=== PATIENT | female | born 1995 | race Caucasian/White ===

== ENCOUNTER 2018-08-21 16:15 | Outpatient (RCR) | payer OTHER, SELFPAY ==
--- NOTE | 2017-12-21 18:36 | MASS.EVAL_ITS ---
Massage Therapy Evaluation: Initial Evaluation Date: 12/21/2017 SUBJECTIVE: Ashley is a 22 year old female who was referred to the [facility] facility for a massotherapy evaluation by Dr. Jesse Piña with the diagnosis of migraines and TMJ dysfunction. Ashley presents today with the symptoms of neck and upper back pain with muscle tension in her low back and hips. She also complains of tension in her head with migraine symptoms. She reports having a medical history of neck pain and occasional migraines. She reports having minimal limitations during her daily activities currently. OBJECTIVE: Upon observation Ashley has poor posture with her head forward and shoulders forward from the neutral position in sitting and standing. After examination and palpation I found Ashley to have very high muscle tension with tenderness and myofascial restrictions in her sub occipitals, trapezius, rhomboids, scalenes, thoracic paraspinals and pectoral muscles. Her hips and lumbar region were also tight. The first treatment consisted of a one hour massage to her full body with myofascial release, muscle stripping, trigger point compression techniques, and cervical manual traction. ASSESSMENT: I feel that Ashley is a good candidate for massotherapy at this time. She had a favorable response to the first treatment with reduction in her muscle aches, pain and tension. She also had improvement in her cervical flexibility. PLAN: The plan of care was reviewed with the patient. The patient is to be seen on as needed basis for a total of ten sessions with the recommendation of once every four weeks for a one hour treatment.
--- NOTE | 2018-09-08 14:48 | MASS.DISCH ---
Massage Therapy Discharge Summary: Discharge Date: 09/08/2018 Ashley was seen for a massotherapy evaluation on 12/21/2017 with the diagnosis of migraines and TMJ. She was treated with two sessions of massage therapy consisting of deep pressure soft tissue techniques, myofascial release and trigger point compression to her cervical, thoracic, lower back, upper extremities and hips. Ashley responded well to the therapy by reporting decreased tension and pain throughout her neck, shoulders, lower back and hips. Her goals for therapy were met throughout the treatment sessions. At this time this patient is being discharged from our care at [facility] facility.
== END 2018-08-21 19:00 | disposition home or self-care (01) ==
LOC: MASS 16:15
PROVIDERS: Family Provider Family Medicine; PCP Family Medicine; Visit Provider Family Medicine
DX: G43.909 Migraine, unspecified, not intractable, without status migrainosus (principal); M26.69 Other specified disorders of temporomandibular joint
CPT/HCPCS: 97124

== ENCOUNTER → 2018-10-31 11:39 | Outpatient (CLI) | payer OTHER, SELFPAY | LOC: LAB 11:41 → LABSPEC 11:45 | PROVIDERS: Family Provider Family Medicine; PCP Family Medicine; Referring Provider Otolaryngology Otolaryngology/Facial Plastic Surgery; Visit Provider Otolaryngology Otolaryngology/Facial Plastic Surgery | DX: J03.90 Acute tonsillitis, unspecified (principal) | CPT/HCPCS: 87070 ==

== ENCOUNTER 2018-12-13 09:10 | Day surgery (SDC) | payer OTHER, SELFPAY ==
[2018-12-13] VITALS (7 sets, daily range): BP systolic 116–124; BP diastolic 73–83; PULSE 58–85; RESP 16–24; TEMP 36.6–37.3; O2SAT 95–100; BMI 28.7
[2018-12-13 09:32] LABS: Internal QC Validated? YES +Cl - CLEAR BKGD; Pregnancy, Urine Negative Negative
[2018-12-13] MEDS: Oxymetazoline 0.05% 1 SPRAY SPRAY.BTL NASAL (10:40)
[2018-12-13] MEDS: Bacitracin 500 UNITS/GM PACKET (10:43)
--- NOTE | 2018-12-13 10:50 | TONS_PTH ---
PATIENT: ALENA OSHEA [place] [facility] [id number] AGE/SX: 23/F ROOM: RE12/13/[address]: Randy Nelson MD : 1995 BED: DIS: 12/13/2018 SPEC #: [id number] RECD: 12/13/18 13:52 STATUS: GERRI SHERRIE #: [id number] OMEGA: 12/13/18 10:[address]: Randy Nleson DEPT: SURGICAL PATHOLOGY RECD BY: Vj Michel ENTERED: 12/13/18 14:21 SP TYPE: TONSILS OTHR DR: Dr. Jesse Piña MD Tissues: Tonsil, NOS Procedures: Surgery Specimen Level III HEADER OPERATION: Tonsillectomy PRE-OP DIAGNOSIS: Chronic tonsillitis TISSUE SUBMITTED: Bilateral tonsils (right with tie) MICROSCOPIC DIAGNOSIS Bilateral tonsils: Reactive lymphoid hyperplasia, consistent with chronic tonsillitis. SJ:flakita 12/14/18 MICROSCOPIC DESCRIPTION Slides are reviewed. GROSS DESCRIPTION Received is one container labeled with the patient's name and designated tonsils - tie on right are two tonsils that in aggregate weigh 7 gm. The right tonsil has a tie on it and measures 3.2 x 1.7 x 1.3 cm. The left tonsil measures 2.6 x 1.5 x 1 cm. Both tonsils are similar in appearance. The external surfaces are pink-macias, smooth, glistening and somewhat lobulated. Focally they are hemorrhagic, granular and bear cautery artifact. Serial cross sections through the tonsils reveal normal tonsillar architecture. Sections are submitted in two cassettes as follows: 1 - right tonsil, 2 - left tonsil. / AM:flakita 12/13/18 TC:3 [facility]: [id number] x2
--- NOTE | 2018-12-13 10:55 | DCINST_ITS ---
Discharge Diet: Soft diet - for 2 weeks, be sure to drink extra liquids. Discharge Activity: Return to Normal Activity - Rest for 10 days Additional Activity Instructions:: Use tylenol (with or without the hydrocodone) every 4 hours for the first 7-10 days then as needed. Allergies/Adverse Reactions: Allergies sulfamethoxazole [From Bactrim] Adverse Reaction (Verified 12/06/18 10:14) Rash trimethoprim [From Bactrim] Adverse Reaction (Verified 12/06/18 10:14) Rash Medications to take at Discharge Escitalopram Oxalate [Lexapro] 10 mg PO DAILY 10/23/16 Loratadine [Claritin] 10 mg PO DAILY 12/06/18 Primary Care Physician: Jonathan Piña MD [Primary Care Provider] - Test Results: Test results from this visit will be discussed in further detail at your follow- up appointment, if applicable. Please Follow Up With: Randy Nelson MD - [phone] When: in 1-2 weeks.
--- NOTE | 2018-12-13 11:26 | PCM.OPRPT ---
Report of Operation Date of Procedure: 12/13/18 Pre-Operative Diagnosis: Chronic tonsillitis Post-Operative Diagnosis: Same Surgery/Procedure Performed:: Tonsillectomy Type of Anesthesia:: Bro Diez/Supplemental Anesthesiologist: Rock Simpson CRNA Estimated Blood Loss (mL): 15 ml Description of Procedure: The patient was transported to the operating room and placed on the OR table in the supine position. After the administration of adequate general endotracheal anesthesia the patient was appropriately positioned, eyes were treated and taped closed. Head drape was applied. The Eren-Eda mouthgag was introduced into the oral cavity extended and suspended from a Hernandez stand. Inspection and palpation were negative for any signs of submucosal clefting of the palate. Adenoidal tissue had regressed and was virtually absent. Tonsillar tissues were markedly hyperplastic but not acutely inflamed. The right tonsil was grasped with a tenaculum. With #12 sickle blade a mucosal incision was created along the right anterior tonsillar pillar. With Marie dissector, Metzenbaum scissors, in both blunt and sharp fashion the tonsil was excised. The bayonet Bovie was utilized for hemostasis throughout the dissection as well as for electrodissection. The left tonsil was then removed in similar fashion. The oral cavity was irrigated with saline suctioned dry and hemostasis was obtained with electrocautery. When it was evident that no further bleeding was present, the Eren-Eda mouthgag was relaxed, withdrawn, and the procedure terminated. The patient tolerated the procedure well, did not sustain any anesthetic or surgical complication, was extubated in the operating room and taken to the PACU where she was noted to be in satisfactory condition. Randy Nelson MD
[2018-12-13] MEDS: HYDROCODONE/APAP 7.5-325/15ML 15 ML UDC 10 ML PO (12:18)
== END 2018-12-13 13:23 | disposition home or self-care (01) ==
LOC: SDC 09:11 → AC 09:11
PROVIDERS: Anesthesiology; Family Provider Family Medicine; PCP Family Medicine; Referring Provider Otolaryngology Otolaryngology/Facial Plastic Surgery; Visit Provider Otolaryngology Otolaryngology/Facial Plastic Surgery
PROC: (CPT 42826; principal; 2018-12-13 10:35)
DX: J35.01 Chronic tonsillitis (principal); F32.9 Major depressive disorder, single episode, unspecified; Z79.899 Other long term (current) drug therapy
CPT/HCPCS: 00170; 42826; 81025; 88304; J7120; J2405

== ENCOUNTER 2019-09-03 14:30 | Outpatient (RCR) | payer OTHER, SELFPAY ==
[2018-12-13 09:18] VITALS: BMI 28.7
--- NOTE | 2019-02-25 10:55 | MASS.EVAL ---
Massage Therapy Evaluation: Initial Evaluation Date: 02/13/2019 SUBJECTIVE: Ashley is a 23 year old female who was referred to the [facility] facility for a massotherapy evaluation by Dr. Piña with the diagnosis of Migraines and muscle tension. Ashley presents today with the symptoms of tension and pain in her neck, mid back and low back. Ashley reports having a past medical history migraines, neck and back pain. OBJECTIVE: Upon observation Ashley has some posture issues with her head and shoulders forward from the neutral position in sitting and standing. After examination and palpation I found Ashley to have high muscle tension with tenderness and myofascial restrictions in her sub occipitals, levator scapulae, trapezius, rhomboids, scalenes, and thoracic paraspinals. Her QL?s, lumbar paraspinals, piriformis, glute medius and minimus all were very tight with fascial restrictions, tender points and trigger points. The first treatment consisted of a one hour massage to her full body with myofascial release, muscle stripping, trigger point compression techniques, and cervical manual traction. ASSESSMENT: I feel that Ashley is a good candidate for massotherapy at this time. She had a favorable response to the first treatment with reduction in her muscle aches, pain and tension. She also had improvement in her cervical flexibility and low back flexibility. PLAN: The plan of care was reviewed with the patient. The patient is to be seen on an as needed basis for a total of ten sessions with the recommendation of once every month for a one hour treatment. Diane Seay LMT
--- NOTE | 2019-09-05 13:06 | MASS.DISCH ---
Massage Therapy Discharge Summary: Discharge Date: 09/05/2019 Ashley was seen for a massotherapy evaluation on 02/13/2019 with the diagnosis of migraines. She was treated with five sessions of massage therapy consisting of moderate to deep pressure soft tissue techniques, myofascial release and trigger point compression to her cervical, thoracic, lower back, upper extremities, hips and lower extremities. Ashley responded well to the therapy by reporting decreased tension and pain throughout her head, neck, shoulders, lower back and hips. Her goals for therapy were met throughout the treatment sessions. At this time this patient is being discharged from our care at [facility] facility.
== END 2019-09-03 19:00 | disposition home or self-care (01) ==
LOC: MASS 14:30
PROVIDERS: Family Provider Family Medicine; PCP Family Medicine; Referring Provider Family Medicine; Visit Provider Family Medicine
DX: G43.909 Migraine, unspecified, not intractable, without status migrainosus (principal)
CPT/HCPCS: 97124

== ENCOUNTER → 2020-05-07 | Outpatient (CLI) | payer OTHER, SELFPAY ==
[2018-12-13 09:18] VITALS: BMI 28.7
[2020-05-12 03:06] LABS: Chlamydia By Nucleic Acid AMP Negative (Negative)
[2020-05-12 10:45] LABS: Gonococcus By Nucleic Acid AMP Negative (Negative)
[2020-05-12 13:34] LABS: HPV Reflexed? NOT INDICATED
== END | disposition home or self-care (01) ==
LOC: LABSPEC 17:00
PROVIDERS: PCP Family Medicine; Referring Provider Obstetrics & Gynecology; Visit Provider Obstetrics & Gynecology
DX: Z12.4 Encounter for screening for malignant neoplasm of cervix (principal); Z11.3 Encounter for screening for infections with a predominantly sexual mode of transmission
CPT/HCPCS: 87491; 87591; 88175; G0145

== ENCOUNTER → 2020-06-17 07:55 | Outpatient (CLI) | payer OTHER, SELFPAY ==
[2018-12-13 09:18] VITALS: BMI 28.7
--- NOTE | 2020-06-17 08:00 | CT_ITS ---
STUDY: CT MAXILLOFACIAL SINUSES REASON FOR EXAM: Female, 24 years old. SINUSITIS X YEARS RADIATION DOSAGE (If Supplied By Facility): CTDIvol = ( 33.06 ) mGy, DLP = ( 676.83 ) mGycm TECHNIQUE: The patient was scanned in a multi detector CT scanner. High resolution axial imaging was performed without the administration of intravenous contrast material. Sagittal and coronal images were reconstructed. Individualized dose optimization techniques were used for this CT. COMPARISON: None. FINDINGS: FRONTAL SINUSES: Normal aeration, without mucosal inflammatory disease. ETHMOIDAL SINUSES: Normal aeration, without mucosal inflammatory disease. MAXILLARY SINUSES: Partial nodular opacification of the maxillary sinus bilaterally worse on the left side. SPHENOIDAL SINUSES: Normal aeration, without mucosal inflammatory disease. There is patency of the bilateral maxillary infundibuli with normal uncinate processes, ethmoid bullae, and hiatus semilunaris. Normal bilateral middle turbinates. Normal bilateral inferior turbinates. There is a right sided nasal septal deviation, but without a nasal septal spur. There is patency of the bilateral nasal airways. The visualized osseous structures are normal. The visualized bilateral orbital contents are normal. CT/Sinus/Facial Bone IMPRESSION: Partial opacification of the maxillary sinus bilaterally worse on the left side Electronically Signed: Robert Zheng, at 8:53 EDT , Service support ,
== END ==
PROVIDERS: PCP Family Medicine; Referring Provider Otolaryngology; Visit Provider Otolaryngology
DX: J32.9 Chronic sinusitis, unspecified (principal)
CPT/HCPCS: 70486

== ENCOUNTER → 2020-07-21 10:08 | Outpatient (CLI) | payer OTHER, SELFPAY ==
[2020-06-29 08:39] VITALS: BMI 28.7
== END ==
LOC: LABSPEC 10:08 → PSN 10:09
PROVIDERS: PCP Family Medicine; Referring Provider Otolaryngology; Visit Provider Otolaryngology
DX: Z11.59 Encounter for screening for other viral diseases (principal)
CPT/HCPCS: 87635; C9803; U0003

== ENCOUNTER 2020-09-07 13:30 | Outpatient (RCR) | payer OTHER, SELFPAY ==
[2018-12-13 09:18] VITALS: BMI 28.7
--- NOTE | 2019-11-13 10:32 | MASS.EVAL ---
Massage Therapy Evaluation: Initial Evaluation Date: 11/08/2019 SUBJECTIVE: Ashley is a 24 year old female who was referred to the [facility] for a massotherapy evaluation by Dr Piña with the diagnosis of migraines. She presents today with the symptoms of pain, stiffness and tension in the neck, mid back, and low back. Ashley reports having a few headaches a week. Some are worse then others. OBJECTIVE: Upon observation Ashley has some posture issues with her head and shoulders forward from the neutral position in sitting and standing. After examination and palpation, I found Ashley to have high muscle tension with tenderness and myofascial restrictions in her sub occipitals, levator scapulae, trapezius, rhomboids, scalenes, and thoracic paraspinals. Her left side is worse compared to the right side. Her QL?s and lumbar paraspinals all were very tight with fascial restrictions, tender points and trigger points. The first treatment consisted of a one hour massage to her upper body with myofascial release, muscle stripping, trigger point compression techniques, and cervical manual traction. ASSESSMENT: I feel that Ashley is a good candidate for massotherapy at this time. She had a favorable response to the first treatment with reduction in her muscle aches, pain and tension. She also had improvement in her cervical flexibility and low back flexibility. PLAN: The plan of care was reviewed with the patient. The patient is to be seen on an as needed basis for a total of ten sessions with the recommendation of once every month for a one hour treatment.
--- NOTE | 2020-09-07 15:05 | MASS.DISCH ---
Massage Therapy Discharge Summary: Initial Evaluation Date: 11/08/2019 Diagnosis: Migraines No. of Visits: 7 Date of last visit: 09/07/2020 This patient is being discharged from our care at the [facility]. Thank you, Jenn Shetty LMT
== END 2020-09-07 19:00 | disposition home or self-care (01) ==
LOC: MASS 13:30
PROVIDERS: PCP Family Medicine; Referring Provider Family Medicine; Visit Provider Family Medicine
DX: G43.909 Migraine, unspecified, not intractable, without status migrainosus (principal)
CPT/HCPCS: 97124

== ENCOUNTER → 2021-01-13 11:23 | Outpatient (CLI) | payer OTHER, SELFPAY ==
[2020-06-29 08:39] VITALS: BMI 28.7
--- NOTE | 2021-01-13 11:35 | RAD_ITS ---
STUDY: X-RAY - RIGHT ANKLE REASON FOR EXAM: Right ankle/fifth metatarsal pain since July. TECHNIQUE: 3 view(s) of the ankle. COMPARISON: None. FINDINGS: Normal visualized distal tibia and fibula. Normal medial and lateral malleoli. Normal tibiotalar articulation and ankle mortise. Normal visualized talus and calcaneus. Normal visualized fifth metatarsal base. The visualized subtalar, talonavicular, calcaneocuboid and tarsal articulations are normal. The soft tissue structures are unremarkable. RAD/Ankle min 3 Views IMPRESSION: Normal x-ray examination of the right ankle. Electronically Signed: Ameya Zheng MD at 12:23 EDT Tel , Service support ,
--- NOTE | 2021-01-13 13:35 | RAD_ITS ---
STUDY: X-RAY - RIGHT FOOT CLINICAL: Lateral right foot pain, rolled right ankle/foot. TECHNIQUE: 3 view(s) of the foot. COMPARISON: None. FINDINGS: Normal talus, calcaneus, and tarsal bones. Normal visualized subtalar, talonavicular, calcaneocuboid, tarsal and tarsometatarsal articulations. Normal metatarsi. Normal metatarsophalangeal joint of the great toe. Normal tibial and fibular sesamoid bones. Normal interphalangeal joint of the great toe. Normal phalanges of the great toe. Normal second through fifth metatarsophalangeal joints. Normal interphalangeal joints and phalanges of the lesser toes. The soft tissue structures are unremarkable. RAD/Foot min 3 Views IMPRESSION: Normal x-ray examination of the right foot. Electronically Signed: Ameya Zheng MD at 14:35 EDT Tel , Service support ,
== END ==
PROVIDERS: PCP Family Medicine; Referring Provider Family Medicine; Visit Provider Family Medicine
DX: M79.671 Pain in right foot (principal)
CPT/HCPCS: 73610; 73630

== ENCOUNTER → 2021-02-12 13:24 | Outpatient (CLI) | payer OTHER, SELFPAY ==
[2020-06-29 08:39] VITALS: BMI 28.7
--- NOTE | 2021-02-12 13:31 | MRI_ITS ---
STUDY: MRI RIGHT REARFOOT WITHOUT CONTRAST REASON FOR EXAM: Female, 25 years old. RIGHT FOOT PAIN TECHNIQUE: Standardized fat and water weighted pulse sequences were obtained in all 3 orthogonal planes. COMPARISON: X-ray January 13, 2021 FINDINGS: Normal subcutis adipose space. Normal posterior tibialis tendon. Normal flexor digitorum longus tendon. Normal flexor hallucis longus tendon. Normal peroneus longus and brevis tendons. Normal tibialis anterior tendon. Normal extensor hallucis longus tendon. Normal extensor digitorum longus tendons. Normal Achilles tendon and teno-osseous insertion. Normal plantar fascia. Normal plantar calcaneal tubercles. Normal intrinsic muscles of the rearfoot. There is interstitial edema of the anterior tibiofibular ligament of the distal tibiofibular articulation consistent with a partial high ankle sprain, series 4 image /. There is mild syndesmotic fluid. Normal lateral ligamentous complex. Normal subtalar ligaments and sinus tarsi. Normal deltoid ligamentous complexes. Normal plantar calcaneonavicular (spring) ligament. Normal tibiotalar articulation. Normal talar dome. Normal subtalar articulations. Normal talonavicular articulation. Normal calcaneocuboid articulation. Normal navicular-cuneiform articulations. MRI/Lower Ext/No Jt/w/o IMPRESSION: High ankle sprain with syndesmotic fluid. No fracture. No osteochondral injury of the talar dome. Electronically Signed: Adams Rutherford MD at 15:42 EDT , Service support ,
== END ==
PROVIDERS: PCP Family Medicine; Referring Provider Family Medicine; Visit Provider Family Medicine
DX: M79.671 Pain in right foot (principal)
CPT/HCPCS: 73718

== ENCOUNTER → 2021-04-05 01:02 | Outpatient (CLI) | payer OTHER, SELFPAY ==
[2020-06-29 08:39] VITALS: BMI 28.7
[2021-04-05 02:22] LABS: Free T3 3.3 pg/mL (2.18-3.98); T4 Free Direct 0.92 ng/dL (0.76-1.46); Thyroid Stim Hormone (TSH) 3.56 uIU/mL (0.358-3.74)
== END ==
PROVIDERS: PCP Family Medicine; Visit Provider Obstetrics & Gynecology
DX: R53.83 Other fatigue (principal); Z03.818 Encounter for observation for suspected exposure to other biological agents ruled out; Z83.49 Family history of other endocrine, nutritional and metabolic diseases
CPT/HCPCS: 84439; 84443; 84481; 86769

== ENCOUNTER 2021-06-25 06:11 | Day surgery (SDC) | payer OTHER, SELFPAY ==
[2021-06-11 13:07] LABS: Absolute Lymphocyte Count 2.01 X10^3/uL (0.83-4.51); Absolute Neutrophil Count 3.2 X10^3/uL (2.0-7.7); Basophil# 0.06 X10^3/uL; Eosinophil# 0.16 X10^3/uL; Eosinophils% 2.7 % (0-5); Hematocrit 44.9 % (37-47); Hemoglobin 15.4 g/dL (12.0-15.0); Lymphocyte # 2.01 X10^3/ul (0.83-4.51); Lymphocyte % 33.4 % (19-41); Mean Corp Hgb Conc 34.3 g/dL (32-36); Mean Corpuscular Volume 93.2 fL (81-99); Mean Platelet Vol. 11.5 fl (6.2-12.0); Monocyte# 0.57 X10^3/uL; Monocyte% 9.5 % (0-10); NRBC Flagged by Analyzer 0 % (0-5); Neutrophil # 3.21 X10^3/uL (2.7-7.7); Neutrophil % 53.2 % (47-70); Platelet Count 233 K/mm3 (150-450); RBC Distribution Width CV 11.5 % (11.6-14.6); RBC Distribution Width SD 38.2 fl (35.1-43.9); Red Blood Count 4.82 M/mm3 (4.2-5.4)
[2021-06-11 13:40] LABS: ALB/GLOB Ratio 1.1 RATIO (0.9-2.4); AST(SGOT) 43 U/L (15-37); Alanine Aminotransfer ALT/SGPT 87 U/L (13-56); Albumin, Serum 3.8 g/dL (3.2-5.0); Alkaline Phosphatase 86 U/L (45-117); Anion Gap 3 (5-15); BUN 7 mg/dL (7-18); BUN/Creat Ratio 8.7 RATIO (10-20); Chloride 105 mmol/L (98-107); EST Glomerular Filtration Rate 91 mL/min (>60); Est Glom Filt Rate - Afr Amer 110 mL/min (>60); Globulin 3.5 g/dL (2.2-4.2); Glucose 116 mg/dL (74-106); Potassium 3.7 mmol/L (3.5-5.1); Protein, Total 7.3 g/dL (6.4-8.2); Sodium Level 138 mmol/L (136-145)
[2021-06-25 06:43] LABS: Internal QC Validated? YES +Cl - CLEAR BKGD; Pregnancy, Urine Negative Negative
[2021-06-25 06:47] VITALS: BP 121/73; PULSE 78; RESP 16; TEMP 36.5; O2SAT 100; BMI 32.3
[2021-06-25] MEDS: Lactated Ringers 1,000 ML 80 ML IV (06:59)
[2021-06-25] MEDS: Cefazolin 2 GM in 0.9% Normal Saline 100 ML IV (07:25)
--- NOTE | 2021-06-25 07:30 | RAD_ITS ---
STUDY: X-RAY - RIGHT ANKLE REASON FOR EXAM: Female, 25 years old. Repair of ankle syndesmosis. Injury. Arthroplasty. TECHNIQUE: 3 series of fluoroscopic images were provided. The first contains 14 images. The second contains 35 images. The third contains 56 images. Fluoroscopy time was not provided. COMPARISON: Right ankle, 01/13/2021. FINDINGS: Initial set of images are obtained right ankle. There is evidence of a fixation device extending from the lateral aspect of distal fibula through the medial aspect of the tibia. The ankle mortise appears to be in grossly normal position. The second series of images again demonstrate the fixation device in various images. The third demonstrates the ankle and lateral view was movement of the ankle. Please refer to the operative report for further details RAD/Ankle min 3 Views IMPRESSION: Fixation of the distal tibia and fibula in the OR. Electronically Signed: Steve Pederson DO at 16:31 EDT Tel [phone], Service support ,
[2021-06-25] MEDS: Lidocaine 1% /Epi 1:100 (20ml) 20 ML Vial (08:12)
[2021-06-25] MEDS: Bupivacaine Mpf 0.5% 30 ML VIAL (09:00)
[2021-06-25] MEDS: Lidocaine 1% (30 ml sdv) 30 ML Vial (09:00)
--- NOTE | 2021-06-25 09:25 | OP.PCM_ITS ---
Problems Associated Problem List Diagnoses (1) High ankle sprain of right lower extremity: (2) Pain in right ankle and joints of right foot: (3) Other synovitis and tenosynovitis, right ankle and foot: Report of Operation Date of Procedure: 06/25/21 Pre-Operative Diagnosis: 1. Right ankle syndesmosis injury / instability 2. Right ankle pain 3. Right ankle synovitis 4. Possible right ankle instability (lateral) Post-Operative Diagnosis: 1. Right syndesmosis injury / instability 2. Right ankle pain 3. Right ankle synovitis Surgery/Procedure Performed:: 1. Right diagnostic and reparative ankle arthroscopy (synovectomy) 2. Repair of right ankle syndesmosis 3. Flouroscopy guided stress test of right ankle Description of Surgical Findings:: Hemostasis: Well-padded pneumatic right thigh tourniquet, 305 mmHg, 47 minutes total Materials: one Arthrex FiberWire tight rope, 3-0 Vicryl, 4-0 nylon Complications: None Specimens: None Findings: -arthroscopic: synovitis to the anterior lateral ankle gutter. No osteochondral defect or loose bodies. The distal syndesmosis was evaluated with some laxity with over 2 mm of probing diastases. The deltoid ligament and ATFL appeared intact without any attenuation. -flouroscopic: There was instability to ankle sydnesmosis pre repair. Repeat flouroscopy guided stress test without instability noted post repair of the distal ankle syndesmosis. The patient tolerated the procedure and anesthesia well. The patient was transported to the PACU with vital signs stable and vascular status intact to the surgical limb. To ice and elevate for pain and inflammation management. Postoperative x-rays were reviewed prior to leaving the operating room. There were no acute injuries noted. The ankle mortise was maintained in a rectus position. Post repair stress films were reviewed including dorsiflexion external rotation, anterior drawer test, and stress inversion with no additional instability noted. Postoperative orders were entered electronically. Surgeon: Genoveva Bernstein curing room supervisor: None (Mariam Lara, PGY3, DPM) Type of Anesthesia: General and Local (Intraoperative right lower extremity: 14 cc of 1% lidocaine with epinephrine administered intra articular (ankle), 15 cc of 1% lidocaine plain mixed with 0.5% Marcaine plain administered in high ankle block fashion) Specimen's removed: none Estimated Blood Loss (mL): < 75 mL Description of Procedure: Indications: This 25-year-old female with significant past medical history of depression sustained a right ankle sprain injury almost one year ago when she jumped out of a truck while on vacation. The mechanism of injury was inversion with forced dorsiflexion. She has had ongoing instability and pain to the anterior lateral lower ankle extending into the dorsal foot. X-rays did not demonstrate any gapping at the tibia-fibula relationship or any shortening of the fibula. MRI reviewed did not demonstrate any bone marrow edema or osteochondral lesion of the distal end of the tibia or talus. There was some edema and attenuation to the distal syndesmosis and not in particular to the AITFL, ATFL, deltoid ligaments, or PITFL. The peroneal tendons looked intact. She had a diagnostic ankle injection with temporary resolution of pain in the clinical setting. Her pain on palpation is to the distal syndesmosis and there was no gross laxity clinically with the anterior drawer test. Her neurovascular status is intact. She has a rectus lower extremity and does not appear to have any functional or structural cavus characteristics. She was previously evaluated seated and standing. Preoperative H&P (Dr. Piña) were reviewed including his diagnostic data. There was no gross abnormalities noted with labs for preoperative EKG. Preoperative indications, planned procedure, benefits, risk, anticipated healing time and management were reviewed. The patient understands and elects proceed with surgery at this time. No guarantees were made. The patient understands risk and complications include but are not limited to following: pain, swelling, scarring, need for further surgery, tendon contracture, transfer lesion, hardware failure, arthritis, need for further surgery, delayed or nonhealing, infection, blood clot, continued instability, allergic reaction, loss of limb, function, or life. The informed surgical limb and consent were signed. I ans wered all the patient's questions. The patient also understands there is an inherent risk with being in the hospital and undergoing a procedure during the time of COVID-19 pandemic. The patient understands precautions are being taken to prevent transmission. This patient understands the benefits and risks of having a procedure at this time versus waiting in which the benefits are reasonable at this time. Procedure in detail: This patient was brought to the operating room via cart and placed on the operating table in supine position. Final verification of the patient, surgery, limb designation was performed via the timeout procedure. General anesthesia was initiated by the anesthesia team. IV antibiotics were administered. Preoperative fluoroscopy guided stress test were performed prior to preparation of the sterile field. Her right lower extremity was compared to the non injured left lower extremity. She did demonstrate syndesmosis instability on the mortise evaluation on the right, and not with the anterior drawer test or stress inversion tests. This was captured with saved radiographs. A well-padded pneumatic right thigh tourniquet was placed. Next, she was positioned for ankle arthroscopy with her knee flexed. Care was taken to pad and position her well to prevent neuropraxia and also to allow good surgical site exposure. The right lower extremity was prepped and draped in the usual sterile fashion. Next, preoperative local anesthetic was administered intra-articular (lidocaine with epi) and also to the portal incision site locations (lidocaine and marcaine plain mixture). A small incision was made medial to the tibialis anterior careful dissection was performed through the capsule. The cannula and obturator were entered intra-articular. Next, the arthroscope was placed and the joint was directly visualized. Ingress and egress flow was adjusted with lactated ringer fluid. The lateral entry point was next made with a small less than 1 cm linear incision via transillumination lateral to the extensor digitorum longus tendon. Care was taken to identify, protect, retract and avoid all neurovascular structures at this point and throughout the entire surgery. It was noted synovitis was located a moderate amount to the anterior and anterior lateral joint aspects. A 3.5 mm shaver was used to debride any inflammatory proliferative tissue. There was some mild invagination of the hypertrophic synovium to this anterior lateral ankle region. There were no fibrous bands, loose bodies, or osteochondral injuries seen. Next, an anterior and central joint survey was performed according to standard protocol in which the ATFL and deltoid ligament and posterior deltoid ligament were visualized without any abnormalities. There were no soft spots noted with direct probing. There was no fibrous bands or synovitis noted to the medial gutter or anteromedial joint. There was no chondromalacia or joint fissures seen either to the talus or tibia articular surfaces. There was laxity noted at the syndesmosis area in which a 2 mm probe was advanced into this region which correlated with her clinical findings. The distal aspect of the tibia articular surface was also evaluated without any abnormalities. The full joint survey included the following: anterior gutter, ATFL, lateral gutter, lateral interval, central groove, medial band, medial gutter, deltoid ligament, central portion of the talus and plafond, articulation of the lateral talar dome with the tibia and fibula, medial dome of the talus and corresponding plafond, deltoid ligament, talofibular articulation, and posterior lateral gutter. Arthroscopic images were saved. All arthroscopic instrumentation were removed at this time. The tourniquet was deflated; 24 min utes. The patient was next placed in a standard supine position and anticipated instrumentation was prepared. An Esmarch bandage was used to exsanguinate the right lower extremity and the tourniquet was reinflated at this time. A 2 cm linear incision was made lateral to the distal fibula and blunt dissection was performed down to the fibula taking care to identify, protect, retract all neurovascular structures throughout the remainder of surgery. Arthrex syndesmosis tight rope was applied according standard fashion approximately 1 1/2 cm proximal to the joint under fluoroscopy guidance. This was tightened with hand tightness and was secured. Fluoroscopic images were obtained to confirm proper placement through both the fibula and tibia. Next, the fluoroscopy guided stress test were repeated and no remaining laxity was noted. The additional proposed procedures to consider additional lateral ankle stabilization repair was not deemed necessary at this time. Saline irrigation was performed. The tourniquet was deflated at this time with a total used time of 47 minutes. Brisk capillary refill time was noted to all digits of the foot and there was no pulsatile bleeding. Direct pressure was applied to maintain hemostasis. Vicryl suture was used to perform deep closure and the skin was reapproximated with nylon suture utilizing horizontal mattress technique. A dressing was applied including jumpstart antimicrobial dressing, gauze, abdominal pad, and Kerlix. Additionally, a well-padded posterior mold splint was placed in a neutral position. After procedure: The patient tolerated the procedure and anesthesia well. The patient was transported to the PACU with vital signs stable and vascular status intact to the surgical limb. To ice and elevate for pain and inflammation management. Postoperative x-rays were reviewed prior to leaving the operating room as noted. To maintain a nonweightbearing status to the surgical limb. She will follow-up with the [facility] next week. She was given a prescription for postoperative pain medication and was advised on safe and proper use. Postoperative orders were entered electronically. She will be discharged home today. Genoveva Bernstein DPM, [facility] Grafts/Implants Used: arthrex sydnesmosis repair implant Complications none Admit VTE Documentation VTE Present on Admission: No VTE Mechan Device Prophylaxis: SCD's VTE Pharm Prophylaxis ordered?: No Reason prophylaxis not ordered:: Procedure Not Indicated
--- NOTE | 2021-06-25 09:28 | EX.PCM.DISCH ---
Discharge Instructions Diet Discharge Diet: No restrictions Activity Discharge Activity: May Not Drive, May Shower (only with the use of a shower bag), Use Walker, Use Crutches and - (use knee roller) Ice area for (Minutes): 15 (place behind knee and not on the dressing or splint. do not ice for more than 15 minutes each hour) Weight Bearing Status: No weight bearing Keep extremity elevated above heart level: Right Leg Dressing / Incision Call your doctor if your incision/area has: Continuous Slow Oozing, Sudden Increased Bleeding, Increased Pain/ Swelling, Increased Redness, Foul Smelling Discharge and Swelling at the incision site Call your doctor if you observe: Fever of 101 or Higher, Swelling in the ankles, Chest pain, Calf discomfort and Uncontrolled pain Change Dressing in: do not change dressing Remove Dressing in: do not remove dressing Cleanse incision/area with: Keep Dressing Clean & Dry Follow Up Care Please Follow Up With: Genoveva Bernstein DPM When: 1 week [facility] the [facility]. Call [phone] sooner if questions or concerns. Test Results: Test results from this visit will be discussed in further detail at your follow-up appointment, if applicable. Discharge Plan Admission Primary Reason for Your Visit: s/p ankle surgery Attending Provider: Genoveva Bernstein Primary Care Provider: Jonathan Piña Discharge Orders/Prescriptions Prescriptions: New hydrocodone-acetaminophen 5-325 mg tablet 1 tab PO Q6H PRN (Reason: pain) 7 Days Qty: 28 RF: 0 No Action escitalopram oxalate 20 MG tablet 10 mg PO QODAY RF: 0 loratadine [Claritin Liqui-Gel] 10 MG capsule 10 mg PO DAILY RF: 0 multivitamin with minerals [Hair,Skin and Nails] Tablet 1 tab PO DAILY RF: 0 escitalopram oxalate [Lexapro] 5 mg Tablet 5 mg PO QODAY RF: 0 cholecalciferol (vitamin D3) [Vitamin D3] 25 mcg (1,000 unit) Tablet 25 mcg PO QODAY RF: 0 Referrals / Follow Up: Jonathan Piña MD [Primary Care Provider] - Disposition Disposition (needs filled in before D/C Order can be placed): Home, Self Care
[2021-06-25 09:33] VITALS: BP 101/58; BP 121/73; PULSE 64; RESP 16; TEMP 35.9; O2SAT 99
[2021-06-25 09:45] VITALS: BP 107/67; BP 121/73; PULSE 71; RESP 16; O2SAT 99
[2021-06-25] MEDS: Ketorolac 30 MG/ML Syringe IV (09:56)
[2021-06-25 10:00] VITALS: BP 115/70; BP 121/73; PULSE 64; RESP 18; TEMP 36.4; O2SAT 100
[2021-06-25] MEDS: HYDROcodone Bitartrate/Apap 5/325 Tablet PO (10:38)
[2021-06-25 11:32] VITALS: BP 102/61; BP 121/73; PULSE 72; RESP 16; TEMP 36.3; O2SAT 99
--- NOTE | 2021-06-25 12:57 | SUR.PHASEII ---
Dr. Beltran called and asked to updated patient on surgery specifics. Dr her.
== END 2021-06-25 11:38 | disposition home or self-care (01) ==
LOC: SDC 06:11 → AC 06:11
PROVIDERS: Anesthesiology; PCP Family Medicine; Referring Provider Podiatrist; Visit Provider Podiatrist
PROC: (CPT 27829; principal; 2021-06-25 07:15)
DX: S93.431A Sprain of tibiofibular ligament of right ankle, initial encounter (principal); M65.871 Other synovitis and tenosynovitis, right ankle and foot; M25.371 Other instability, right ankle; X58.XXXA Exposure to other specified factors, initial encounter; Y93.9 Activity, unspecified; Y92.9 Unspecified place or not applicable; F41.9 Anxiety disorder, unspecified; F32.9 Major depressive disorder, single episode, unspecified; Z79.899 Other long term (current) drug therapy
CPT/HCPCS: 01464; 27829; 29895; 73610; 76000; 80053; 81025; 85025; 87426; C1713; C9803; J7120; J2405

== ENCOUNTER 2021-09-13 13:30 | Outpatient (RCR) | payer OTHER, SELFPAY ==
--- NOTE | 2021-08-18 11:06 | HP.PTEVAL ---
Patient's Visit Information ALENA COYLE is a 25 year old F referred to Physical Therapy by Dr. Genoveva Bernstein, DPM with a diagnosis of RIGHT ANKLE SYNDESMOSIS REPAIR,ANKLE ARTHROSCOPY WITH SYNEVECTOMY. Date of Evaluation: 08/18/21 Physical Therapist: Randy Martin, PT, Cert MDT, OCS - Visit Plan Frequency: 2-3x /Week Duration: 8 WEEKS Plan: CAM BOOT WITH WBAT UNTIL 08/23 ,WITH PATIENT NOT COMPLIANT. PT INTERVENTIONS WITH GAIT TRAINING WITH PROGRESSION OF WB,ROM ANKLE,STRENGTHENING EX'S ANKLE STABILZERS ,CLOSED CHAIN WB ACTIVTIES ,PROPRIOCEPTION AND FUNCTIONAL STRENGTHENING - Subjective This 25 female presents to physical therapy right syndesmosis repair and ankle arthroscopy with synovectomy on 06/25/[address] Bernstein at [facility] . Patient d/c to home NWB RLE using knee scooter. Patient was NWB for 4weeks with soft cast .then on 07/05 removed soft cast and removed sutures and CAM boot with PWB RLE 40% ,then from 08/09 2 weeks FWB. Although patient hasn't been following WB restriction Dr looks good had x-rays looked good. Patient initially injury ankle last 08/07/20 twisted ankle and pain persisted ,then had MRI. Denies paresthesia/tingling. Denies pain . Patient has difficulty with stairs and extended walking. Patient has not RTW. Patient RTD 09/08/21. Tentative RTW date Sep 22. Patient surgery affects QOL ,function ,gait and RTW. SOCAIL: single. VOACTION: Plembotist - Objective POSTURE: frontal plane mechanics pes planus. GAIT: ambulates with CAM boot with WBAT per patient. NEURO: intact ,denies paresthesia. EDEMA: joint line trimalleolar 51 cm. AROM: ankle dorsiflexion 0 degrees, plantarflexion 50 degrees, inversion 20 degrees, eversion 5 degrees. MMT: anterior tibials 4-/5, peroneus 4-/5, posterior tibials 4-/5, G-S 3/5 - Balance/Special Test Scores Lower Extremity Functional Score: 44 - Goals Goal 1:: Patient to be I with progression of EX'S Goal Time Frame: 6-8 Weeks Goal 2:: Patient to normalize gait pattern . Goal Time Frame: 6-8 Weeks Goal 3:: Patient improve AROM ankle symmetrical to right to improve function Goal Time Frame: 6-8 Weeks Goal 4:: Patient to increase strength of ankle 4/5 to improve gait Goal Time Frame: 6-8 Weeks Goal 5:: Patient improve proprioception right ankle to improve gait stance time on level/unlevel surfaces Goal Time Frame: 6-8 Weeks Goal 6:: Patient to improve LFES score by 10 points to improve QOL and gait to RTW. - Rehabilitation Potential Physical Therapy Diagnosis: This patient underwent s/p surgery of syndesmosis 06/25/21 with decrease ROM ,strength ankle proprioception impairs gait with progression of WB ,thus benefit from skilled PT Rehabilitation Potential: Good - Anticipated Interventions Patient/Client Instruction: Educate patient on: Condition, Plan of Care For the Purpose of:: To decrease pain, To increase ROM, To improve muscle performance and motor function, To improve ability to perform ADL's, To increase tolerance to activity/condition/position, To improve performance and independence with ADL's, To improve ability of physical actions for home/community/work/leisure, To improve health of tissue, To decrease soft tissue restriction, To increase flexibility/ROM, To reduce risk of recurrence, To prevent re-injury, To improve ability to perform tasks related to life management Therapeutic Exercise to Include: Strength training, Endurance training, Balance training, Coordination, Agility training, Flexibilty training, Gait and locomotor training, Active ROM Comment: ANKLE For the Purpose of:: To decrease swelling/inflammation, To increase ROM, To improve muscle performance and motor function, To improve ability to perform ADL's, To increase tolerance to activity/condition/position, To improve performance and independence with ADL's, To improve ability of physical actions for home/community/work/leisure, To improve gait and locomotor functions, To improve health of tissue, To improve endurance, To improve balance, To improve ability to perform tasks related to life management Thank you for the opportunity to evaluate your patient. For Medicare and Medicare HMO plans, please review the plan of care and approve it. It will need to be FAXED BACK to us at [phone] for Medicare purposes. For Medicare only, by signing this I certify the plan of care. Please let me know if there are questions or concerns regarding this plan of care. Physician Signature: Date:
--- NOTE | 2021-09-13 14:05 | HP.PTDCSUM ---
It has been my pleasure to treat ALENA COYLE referred by Dr. Genoveva Bernstein, TAM[place], with the diagnosis of RIGHT ANKLE SYNDESMOSIS REPAIR,ANKLE ARTHROSCOPY WITH SYNEVECTOMY for a total of 8 visit(s). Discharge Date: 09/13/21 Please see the following information for a summary of their discharge status. Subjective: Doing well..no pain ready for d/c % Improvement: 100 Objective/Function: GAIT: NORMAL ABISAI. MMT: 5/5 ANKLE. AROM ANKLE: WNL. PROPRIOCEPTION: INTACT Goal 1:: Patient to be I with progression of EX'S Goal Progress: Goal Met Goal 2:: Patient to normalize gait pattern . Goal Progress: Goal Met Goal 3:: Patient improve AROM ankle symmetrical to right to improve function Goal Progress: Goal Met Goal 4:: Patient to increase strength of ankle 4/5 to improve gait Goal Progress: Goal Met Goal 5:: Patient improve proprioception right ankle to improve gait stance time on level/unlevel surfaces Goal Progress: Goal Met Goal 6:: Patient to improve LFES score by 10 points to improve QOL and gait to RTW. Plan: D/C Discharge Comments: HEP If there are questions or concerns regarding this patient's physical therapy, please feel free to call me at [phone]. Thank you for the referral of this patient. Sincerely, Randy Martin, PT, Cert MDT, OCS Balance/Gait/Functional tests - Balance/Special Test Scores Lower Extremity Functional Score: 71
== END 2021-09-13 19:00 | disposition home or self-care (01) ==
LOC: PT 13:30
PROVIDERS: PCP Family Medicine; Referring Provider Podiatrist; Visit Provider Podiatrist
DX: Z47.89 Encounter for other orthopedic aftercare (principal)
CPT/HCPCS: 97110; 97161

== ENCOUNTER 2021-09-13 14:45 | Outpatient (RCR) | payer OTHER, SELFPAY ==
--- NOTE | 2021-03-10 11:46 | MASS.EVAL_ITS ---
Massage Therapy Evaluation: Initial Evaluation Date: 03/01/2021 SUBJECTIVE: Ashley is a 25 year old female who was referred to the [facility] for a massotherapy evaluation by Dr. Piña with the diagnosis of migraines. She presents today with the symptoms of pain, stiffness and tension in the neck, head, mid back and low back. Ashley reports having a past medical history of chronic neck and back pain and headaches. She reports of taking muscles relaxers to help with the pain. OBJECTIVE: Upon observation Ashley has poor posture with her head and shoulders forward from the neutral position in sitting and standing. After examination and palpation, I found Ashley to have high muscle tension with tenderness and myofascial restrictions in her sub occipitals, levator scapulae, trapezius, rhomboids, scalenes, and thoracic paraspinals. Her QL?s, lumbar paraspinals, piriformis, ITB?s, glute medius and minimus all were very tight with fascial restrictions, tender points and trigger points. The first treatment consisted of a one hour massage to her upper body with myofascial release, muscle stripping, trigger point compression techniques, and cervical manual traction. ASSESSMENT: I feel that Ashley is a good candidate for massotherapy at this time. She had a favorable response to the first treatment with reduction in her muscle aches, pain, and tension. She also had improvement in her cervical flexibility and low back flexibility. PLAN: The plan of care was reviewed with the patient. The patient is to be seen on an as needed basis for a total of ten sessions with the recommendation of once every month for a one hour treatment.
--- NOTE | 2021-09-13 17:25 | MASS.DISCH ---
Massage Therapy Discharge Summary: Initial Evaluation Date: 03/01/21 Diagnosis: Migraine/Back pain No. of Visits: 9 Date of last visit: 09/13/21 This patient is being discharged from our care at the [facility]. Thank you, Jenn Shetty LMT
== END 2021-09-13 19:00 | disposition home or self-care (01) ==
LOC: MASS 14:45
PROVIDERS: PCP Family Medicine; Visit Provider Family Medicine
DX: M54.9 Dorsalgia, unspecified (principal); G43.909 Migraine, unspecified, not intractable, without status migrainosus
CPT/HCPCS: 97124

== ENCOUNTER 2021-11-22 10:11 | Outpatient (CLI) | payer OTHER, SELFPAY ==
[2021-11-22 12:05] LABS: Internal QC Validated? YES +Cl - CLEAR BKGD; Pregnancy, Serum, hCG Quali. NEGATIVE Negative
== END 2021-11-22 23:59 | disposition home or self-care (01) ==
LOC: LAB 10:12
PROVIDERS: PCP Family Medicine; Visit Provider Student in an Organized Health Care Education/Training Program
DX: N91.2 Amenorrhea, unspecified (principal)
CPT/HCPCS: 36415; 84703

== ENCOUNTER → 2022-01-12 | Outpatient (CLI) | payer OTHER, SELFPAY ==
[2022-01-19 20:45] LABS: HPV Reflexed? NOT INDICATED
== END | disposition home or self-care (01) ==
LOC: LABSPEC 16:11
PROVIDERS: PCP Family Medicine; Visit Provider Obstetrics & Gynecology
DX: Z12.4 Encounter for screening for malignant neoplasm of cervix (principal)
CPT/HCPCS: 88175; G0145

== ENCOUNTER → 2022-07-05 | Outpatient (CLI) | payer OTHER, SELFPAY ==
--- NOTE | 2022-07-05 11:19 | RAD_ITS ---
STUDY: X-RAY - LUMBAR SPINE REASON FOR EXAM: Female, 26 years old. Back pain TECHNIQUE: 3 view(s) of the lumbar spine were obtained. COMPARISON: None FINDINGS: Normal lumbar lordosis. There is no substantial scoliosis. There is a normal alignment of the vertebrae. Normal vertebral bodies and endplates. Normal disc space heights. There is no demonstrated fracture. The soft tissue structures are unremarkable. RAD/Lumbar Spine 2 or 3 Views IMPRESSION: Normal x-ray examination of the lumbar spine. Electronically Signed: Tej Serrano MD at 1:39 EDT ,
--- NOTE | 2022-07-05 11:24 | RAD_ITS ---
STUDY: X-RAY - CERVICAL SPINE REASON FOR EXAM: Female, 26 years old. neck pain TECHNIQUE: AP and lateral view(s) of the cervical spine were obtained. COMPARISON: None FINDINGS: Normal anterior atlantoaxial articulation. Normal odontoid process. Normal cervical lordosis. Normal vertebral bodies and endplates. Normal disc space heights. Normal visualized intervertebral neuroforamina. The soft tissue structures are unremarkable. RAD/Cerv Spine 2 or 3 Views IMPRESSION: Normal x-ray examination of the visualized cervical spine. Electronically Signed: Ant Polo MD at 22:56 EDT ,
== END | disposition home or self-care (01) ==
LOC: RAD 11:16
PROVIDERS: PCP Family Medicine; Referring Provider Chiropractor; Visit Provider Chiropractor
DX: M54.2 Cervicalgia (principal); M99.01 Segmental and somatic dysfunction of cervical region; M99.02 Segmental and somatic dysfunction of thoracic region
CPT/HCPCS: 72040; 72100

== ENCOUNTER 2022-08-15 06:34 | Outpatient (CLI) | payer OTHER, SELFPAY ==
--- NOTE | 2022-08-15 06:35 | CT_ITS ---
STUDY: CT BRAIN WITHOUT CONTRAST REASON FOR EXAM: Female, 26 years old. Ongoing worsening headache RADIATION DOSAGE (If Supplied By Facility): CTDIvol = ( 44.99 ) mGy, DLP = ( 762.36 ) mGycm TECHNIQUE: Transaxial CT imaging of the brain was performed without administration of intravenous contrast material. Individualized dose optimization techniques were used for this CT. COMPARISON: No relevant priors. FINDINGS: Normal soft tissue structures. Normal calvarium. Normal size ventricles and extra-axial spaces for the patient''s age. Normal white matter tracts of the cerebral hemispheres. Normal basal ganglia and thalami. Normal brainstem. Normal cerebellum. There is no intracranial hemorrhage. Question about 2.8 mm aneurysm at the origin of the right middle cerebral artery. There are no findings of an acute ischemic infarction. There is a 1.1 cm mucosal retention cyst or polyp along the posterior aspect of the left maxillary sinus. CT/Brain/Head without Contrast IMPRESSION: Questionable 2.8 mm aneurysm at the origin of the right middle cerebral artery. Correlation with MRI of the brain is recommended. 1.1 cm mucosal retention cyst or polyp along the posterior aspect of the left maxillary sinus. Electronically Signed: Robert Zheng MD at 10:30 EST ,
== END 2022-08-15 23:59 | disposition home or self-care (01) ==
LOC: CT 06:35
PROVIDERS: PCP Family Medicine; Visit Provider Nurse Practitioner Family
DX: G43.909 Migraine, unspecified, not intractable, without status migrainosus (principal)
CPT/HCPCS: 70450

== ENCOUNTER 2022-08-17 05:04 | Outpatient (CLI) | payer OTHER, SELFPAY ==
[2022-08-17 06:04] LABS: Anion Gap 6 (5-15); BUN 12 mg/dL (7-18); BUN/Creat Ratio 15.4 RATIO (10-20); Calcium,Total 8.7 mg/dL (8.5-10.1); Chloride 103 mmol/L (98-107); Creatinine, Serum 0.78 mg/dL (0.55-1.02); EST Glomerular Filtration Rate 93 mL/min (>60); Est Glom Filt Rate - Afr Amer 113 mL/min (>60); Free T3 3.4 pg/mL (2.18-3.98); Glucose 92 mg/dL (74-106); Potassium 3.6 mmol/L (3.5-5.1); Sodium Level 137 mmol/L (136-145); T4 Total, Thyroxin 9.8 ug/dL (4.8-13.9); Thyroid Stim Hormone (TSH) 1.69 uIU/mL (0.358-3.74)
== END 2022-08-17 23:59 | disposition home or self-care (01) ==
PROVIDERS: PCP Family Medicine; Visit Provider Nurse Practitioner Family
DX: R53.83 Other fatigue (principal); I67.1 Cerebral aneurysm, nonruptured
CPT/HCPCS: 36415; 80048; 81241; 82533; 84436; 84443; 84481

== ENCOUNTER 2022-08-24 10:06 | Outpatient (CLI) | payer OTHER, SELFPAY ==
--- NOTE | 2022-08-24 10:10 | MRI_ITS ---
EXAM: MR HEAD WITHOUT AND WITH INTRAVENOUS CONTRAST CLINICAL INDICATION: CT scan with questionable 2.8mm R MCA aneurysm; further eval. TECHNIQUE: Multiplanar and multisequence MR images of the brain were obtained without and with intravenous contrast. This report was created using [employer] report [employer] technology. CONTRAST: IV 18ml Clariscan COMPARISON: CT brain 08/15/2022 FINDINGS: BRAIN AND EXTRA-AXIAL SPACES: Normal. No intra- or extra-axial hemorrhage. No evidence of acute infarct. No intracranial mass or mass effect. There is preservation of the easley/white matter interface. Posterior fossa structures are unremarkable. Ventricles are appropriate for age. No hydrocephalus. Basal cisterns are patent. No abnormal contrast enhancement. No evidence of intracranial aneurysm SELLA: Normal. Normal sella turcica, pituitary gland, infundibular stalk, optic chiasm and hypothalamus. AUDITORY SYSTEM: Normal. The internal auditory canals are patent. BONES/JOINTS: Intact calvarium. SINUSES: Mucosal thickening noted within both maxillary sinuses. MASTOID AIR CELLS: Unremarkable as visualized. Clear. ORBITS: Unremarkable as visualized. Both globes, extraocular muscles, optic nerves and retrobulbar fat appear unremarkable. VASCULATURE: Unremarkable as visualized. Normal flow voids in the major intracranial circulation. MRI/Brain W/WO Contrast IMPRESSION: No intracranial abnormality. No evidence of aneurysm. Electronically Signed: Ryan Baker MD at 11:35 EST ,
== END 2022-08-24 23:59 | disposition home or self-care (01) ==
LOC: MRI 10:07
PROVIDERS: PCP Family Medicine; Visit Provider Nurse Practitioner Family
DX: I67.1 Cerebral aneurysm, nonruptured (principal)
CPT/HCPCS: 70553; A9575

== ENCOUNTER → 2022-09-08 | Outpatient (CLI) | payer OTHER, SELFPAY ==
--- NOTE | 2022-09-08 13:31 | US_ITS ---
STUDY: ULTRASOUND OF THE FEMALE PELVIS - COMPLETE REASON FOR EXAM: Female, 27 years old. OVARIAN DYSFUNCTION LMP: 09/04/2022 TECHNIQUE: Transvaginal TECHNICAL QUALITY: Adequate. COMPARISON: None. FINDINGS: The uterus is anteverted and is tilted to the left side of the pelvis. The uterus measures 7.8 cm x 4.1 cm x 3.6 cm. There is a Nabothian cyst of the cervix. The endometrium measures 8 mm in thickness, and is heterogeneous (striated). There is no demonstrated endometrial mass. There is no demonstrated myometrial mass. I.U.D. - The patient does not have an I.U.D. The right ovary is visualized. The right ovary measures 3.2 cm x 1.9 cm x 2 cm. There is no right ovarian cyst or ovarian mass. There is no visualized right adnexal mass or complex lesion. There is normal arterial and normal venous vascularity. The left ovary is visualized. The left ovary measures 2.5 cm x 2.5 cm x 3.1 cm. Dominant follicle is seen measuring 1.2 cm. There is no visualized left adnexal mass or complex lesion. There is normal arterial and normal venous vascularity. There is no fluid in the cul-de-sac. US/Transvaginal Non- IMPRESSION: Normal female pelvis. Dominant follicle in the left ovary. Electronically Signed: Robert Zheng MD at 14:42 EST ,
== END | disposition home or self-care (01) ==
LOC: US 13:25
PROVIDERS: PCP Family Medicine; Referring Provider Obstetrics & Gynecology; Visit Provider Obstetrics & Gynecology
DX: E28.9 Ovarian dysfunction, unspecified (principal)
CPT/HCPCS: 76830

== ENCOUNTER → 2022-10-01 | Outpatient (CLI) | payer OTHER, SELFPAY ==
[2022-10-01 09:25] LABS: Glucose 75GTT - Fasting 88 mg/dL (70-99)
[2022-10-01 10:13] LABS: Insulin 75GTT - Fasting 8.6 mU/L (2.6-37.6)
[2022-10-01 10:14] LABS: T3 Total - Triiodothyronine 1.26 ng/mL (0.6-1.81); Vitamin D,25 Hydroxy 63.2 ng/mL
[2022-10-01 10:15] LABS: Estradiol 43.3 pg/mL; Follicle Stimulating Hormone 6.3 mIU/mL; Luteinizing Hormone 7.2 mIU/mL; Prolactin 10.1 ng/mL; Thyroid Stim Hormone (TSH) 1.57 uIU/mL (0.358-3.74)
[2022-10-01 10:30] LABS: Insulin 75GTT - 60 min 44.4 mU/L (Not Estab)
[2022-10-01 10:34] LABS: Prolactin 7.5 ng/mL; Thyroid Stim Hormone (TSH) 1.38 uIU/mL (0.358-3.74)
[2022-10-01 10:34] LABS: Prolactin 7.6 ng/mL
[2022-10-01 10:36] LABS: Glucose 75GTT - 30 minutes 109 mg/dL (100-160)
[2022-10-01 10:42] LABS: Glucose 75GTT - 60 minutes 92 mg/dL (100-160)
[2022-10-01 11:24] LABS: Glucose 75GTT - 120 minutes 95 mg/dL (70-140)
[2022-10-03 08:48] LABS: Internal QC Validated? YES +Cl - CLEAR BKGD; Pregnancy, Serum, hCG Quali. NEGATIVE Negative
[2022-10-06 11:09] LABS: Testosterone, % Free 0.98 % (0.50-2.80); Testosterone, Free 0.33 ng/dL (0.10-0.85); Testosterone, Total 34 ng/dL (13-71); Thyroid Peroxidase AB < 9 IU/mL (0-34)
[2022-10-07 12:47] LABS: Sex Hormone-binding Globulin 40.1 nmol/L (24.6-122.0); Thyroglobulin Antibody < 1.0 IU/mL (0.0-0.9)
== END | disposition home or self-care (01) ==
PROVIDERS: PCP Family Medicine; Visit Provider Obstetrics & Gynecology
DX: E28.9 Ovarian dysfunction, unspecified (principal); E55.9 Vitamin D deficiency, unspecified
CPT/HCPCS: 36415; 82306; 82533; 82627; 82670; 82951; 82952; 83001; 83002; 83498; 83525; 84146; 84270; 84402; 84403; 84439; 84443; 84480; 84481; 84703; 86376; 86800; 82626

== ENCOUNTER → 2022-10-03 | Outpatient (CLI) | payer OTHER, SELFPAY ==
--- NOTE | 2022-10-03 08:25 | RAD_ITS ---
STUDY: HYSTEROSALPINGOGRAM. REASON FOR EXAM: Female, 27 years old. INFERTILITY FLUOROSCOPY TIME (if supplied): ( 18 seconds ) minutes/seconds. 2 images were obtained. TECHNIQUE: A hysterosalpingogram was performed by the chief design drafter. Imaging was provided. COMPARISON: None. FINDINGS: The uterus is unremarkable. Both fallopian tubes are widely patent with free spill. RAD/Salpingogram IMPRESSION: Normal hysterosalpingogram. Electronically Signed: Robert Zheng MD at 10:33 EST ,
== END | disposition home or self-care (01) ==
LOC: RAD 08:20
PROVIDERS: PCP Family Medicine; Visit Provider Obstetrics & Gynecology
DX: N97.9 Female infertility, unspecified (principal)
CPT/HCPCS: 58340; 74740; Q9967

== ENCOUNTER → 2023-05-23 | Outpatient (CLI) | payer OTHER, SELFPAY ==
[2023-05-23 05:19] LABS: hCG Titer Quant., Serum 707 mIU/mL (1-3)
== END | disposition home or self-care (01) ==
PROVIDERS: PCP Family Medicine; Visit Provider Obstetrics & Gynecology
DX: N91.2 Amenorrhea, unspecified (principal)
CPT/HCPCS: 36415; 84702

== ENCOUNTER → 2023-05-25 | Outpatient (CLI) | payer OTHER, SELFPAY ==
[2023-05-25 05:42] LABS: hCG Titer Quant., Serum 1852 mIU/mL (1-3)
== END | disposition home or self-care (01) ==
PROVIDERS: PCP Family Medicine; Visit Provider Obstetrics & Gynecology
DX: N91.2 Amenorrhea, unspecified (principal)
CPT/HCPCS: 36415; 84702

== ENCOUNTER → 2023-06-13 | Outpatient (CLI) | payer OTHER, SELFPAY ==
[2023-06-15 22:06] LABS: Chlamydia By Nucleic Acid AMP Negative (Negative); Gonococcus By Nucleic Acid AMP Negative (Negative)
[2023-06-20 22:06] LABS: HPV Reflexed? NOT INDICATED
== END | disposition home or self-care (01) ==
LOC: LABSPEC 15:25
PROVIDERS: PCP Family Medicine; Referring Provider Advanced Practice Midwife; Visit Provider Advanced Practice Midwife
DX: Z34.00 Encounter for supervision of normal first pregnancy, unspecified trimester (principal)
CPT/HCPCS: 87086; 87491; 87591; 88175; G0145

== ENCOUNTER → 2023-07-31 | Outpatient (CLI) | payer OTHER, SELFPAY ==
[2023-07-31 05:36] LABS: Absolute Lymphocyte Count 2.48 X10^3/uL (0.83-4.51); Absolute Neutrophil Count 4.9 X10^3/uL (2.0-7.7); Basophil# 0.06 X10^3/uL; Basophil% 0.7 % (0-1); Eosinophil# 0.32 X10^3/uL; Eosinophils% 3.7 % (0-5); Hematocrit 43.4 % (37-47); Hemoglobin 14.6 g/dL (12.0-15.0); Lymphocyte # 2.48 X10^3/ul (0.83-4.51); Lymphocyte % 28.8 % (19-41); Mean Corp Hgb Conc 33.6 g/dL (32-36); Mean Corpuscular Hgb 31.1 pg (27.0-32.0); Mean Corpuscular Volume 92.3 fL (81-99); Mean Platelet Vol. 11.5 fl (6.2-12.0); Monocyte# 0.78 X10^3/uL; NRBC Flagged by Analyzer 0 % (0-5); Neutrophil # 4.93 X10^3/uL (2.7-7.7); Neutrophil % 57.2 % (47-70); Platelet Count 224 K/mm3 (150-450); RBC Distribution Width CV 11.5 % (11.6-14.6); RBC Distribution Width SD 38.9 fl (35.1-43.9); White Blood Count 8.6 K/mm3 (4.4-11.0)
[2023-07-31 10:44] LABS: HIV - WCH Non-Reactive (Nonreactive); Hepatitis B Surface Antigen Non-Reactive (Nonreactive); Hepatitis C Antibody Non-Reactive (Nonreactive); Rubella IgG Reactive (Nonreactive); Syphilis Antibodies Non-reactive
== END | disposition home or self-care (01) ==
PROVIDERS: PCP Family Medicine; Visit Provider Advanced Practice Midwife
DX: Z34.00 Encounter for supervision of normal first pregnancy, unspecified trimester (principal)
CPT/HCPCS: 36415; 85025; 86703; 86762; 86780; 86803; 86850; 86900; 86901; 87340

== ENCOUNTER → 2023-09-22 | Outpatient (CLI) | payer OTHER, SELFPAY ==
--- NOTE | 2023-09-22 12:34 | US_ITS ---
STUDY: SECOND AND THIRD TRIMESTER OBSTETRICAL ULTRASOUND REASON FOR EXAM: Female, 28 years old anatomy LMP: Unknown. TECHNIQUE: Transabdominal and Transvaginal TECHNICAL QUALITY: Adequate. PRIOR ULTRASOUND: None. FINDINGS: There is a single intrauterine fetus. The fetus is in a cephalic presentation. There is demonstrated cardiac activity with a heart rate of 141 bpm. There is a normal amniotic fluid volume. The largest amniotic fluid pocket measures 6.99 cm. The placenta is posterior in location and is not low lying. There are Grade 0 placental changes. The cervix measures 3.9 cm in length. The adnexal regions are not visualized. BIOMETRY: BPD: 5.26 cm: 22 weeks, 0 days HC: 19.47 cm: 21 weeks, 5 days AC: 17.25 cm: 22 weeks, 1 days FL: 3.55 cm: 21 weeks, 2 days CI: 77.9 age by current US: 21 weeks, 5 days. ABIODUN by current US: January 28, 2024. Estimated weight: 455 grams, +/- 68 grams, 42 %. ANATOMY: (Small defects cannot be excluded on ultrasound) Gender: Male Cranium: Visualized lateral ventricles, choroid plexus, cerebellum, cisterna magna, and face nose and lips. Chest: Normal 4-chamber heart. Abdomen/Pelvis: Visualized diaphragm, stomach, abdominal wall, cord insertion, 3 core vessel, kidneys, and bladder. Spine: Visualized cervical, thoracic, lumbar spine, as well as sacrum. Extremities: Visualized upper and lower extremities. No visualized obvious or significant defect. IMPRESSION: 1. age by current US: 21 weeks, 5 days. ABIODUN by current US: January 28, 2024. Estimated weight: 455 grams, +/- 68 grams, 42 %. Electronically Signed: Primitivo Woodson MD at 16:02 [facility] , STUDY: SECOND AND THIRD TRIMESTER OBSTETRICAL ULTRASOUND REASON FOR EXAM: Female, 28 years old anatomy LMP: Unknown. TECHNIQUE: Transabdominal and Transvaginal TECHNICAL QUALITY: Adequate. PRIOR ULTRASOUND: None. FINDINGS: There is a single intrauterine fetus. The fetus is in a cephalic presentation. There is demonstrated cardiac activity with a heart rate of 141 bpm. There is a normal amniotic fluid volume. The largest amniotic fluid pocket measures 6.99 cm. The placenta is posterior in location and is not low lying. There are Grade 0 placental changes. The cervix measures 3.9 cm in length. The adnexal regions are not visualized. BIOMETRY: BPD: 5.26 cm: 22 weeks, 0 days HC: 19.47 cm: 21 weeks, 5 days AC: 17.25 cm: 22 weeks, 1 days FL: 3.55 cm: 21 weeks, 2 days CI: 77.9 age by current US: 21 weeks, 5 days. ABIODUN by current US: January 28, 2024. Estimated weight: 455 grams, +/- 68 grams, 42 %. ANATOMY: (Small defects cannot be excluded on ultrasound) Gender: Male Cranium: Visualized lateral ventricles, choroid plexus, cerebellum, cisterna magna, and face nose and lips. Chest: Normal 4-chamber heart. Abdomen/Pelvis: Visualized diaphragm, stomach, abdominal wall, cord insertion, 3 core vessel, kidneys, and bladder. Spine: Visualized cervical, thoracic, lumbar spine, as well as sacrum. Extremities: Visualized upper and lower extremities. No visualized obvious or significant defect. US/OB Anatomy Scan IMPRESSION: 1. age by current US: 21 weeks, 5 days. ABIODUN by current US: January 28, 2024. Estimated weight: 455 grams, +/- 68 grams, 42 %. Electronically Signed: Primitivo Woodson MD at 16:02 EST ,
== END | disposition home or self-care (01) ==
LOC: OPUS 12:32
PROVIDERS: PCP Family Medicine; Referring Provider Obstetrics & Gynecology; Visit Provider Obstetrics & Gynecology
DX: Z34.90 Encounter for supervision of normal pregnancy, unspecified, unspecified trimester (principal)
CPT/HCPCS: 76805; 76817

== ENCOUNTER → 2023-11-02 | Outpatient (CLI) | payer OTHER, SELFPAY ==
[2023-11-02 06:12] LABS: Absolute Lymphocyte Count 1.56 X10^3/uL (0.83-4.51); Absolute Neutrophil Count 7.5 X10^3/uL (2.0-7.7); Basophil# 0.04 X10^3/uL; Basophil% 0.4 % (0-1); Eosinophil# 0.17 X10^3/uL; Eosinophils% 1.7 % (0-5); Hemoglobin 13.5 g/dL (12.0-15.0); Lymphocyte # 1.56 X10^3/ul (0.83-4.51); Lymphocyte % 15.6 % (19-41); Mean Corp Hgb Conc 34.6 g/dL (32-36); Mean Corpuscular Hgb 32.5 pg (27.0-32.0); Mean Corpuscular Volume 93.8 fL (81-99); Mean Platelet Vol. 11.2 fl (6.2-12.0); Monocyte# 0.69 X10^3/uL; Monocyte% 6.9 % (0-10); NRBC Flagged by Analyzer 0 % (0-5); Neutrophil # 7.49 X10^3/uL (2.7-7.7); Neutrophil % 74.7 % (47-70); Platelet Count 195 K/mm3 (150-450); RBC Distribution Width SD 44.2 fl (35.1-43.9); Red Blood Count 4.16 M/mm3 (4.2-5.4)
[2023-11-02 06:35] LABS: Glucose Challenge Gest 1H 50g 129 mg/dL (70-140)
[2023-11-02 09:24] LABS: HIV - WCH Non-Reactive (Nonreactive); Syphilis Antibodies Non-reactive
== END | disposition home or self-care (01) ==
PROVIDERS: PCP Family Medicine; Visit Provider Obstetrics & Gynecology
DX: Z34.00 Encounter for supervision of normal first pregnancy, unspecified trimester (principal)
CPT/HCPCS: 36415; 82950; 85025; 86703; 86780

== ENCOUNTER → 2024-01-03 | Outpatient (CLI) | payer OTHER, SELFPAY | END | disposition home or self-care (01) | LOC: LABSPEC 16:01 | PROVIDERS: PCP Family Medicine; Referring Provider Obstetrics & Gynecology; Visit Provider Obstetrics & Gynecology | DX: Z34.00 Encounter for supervision of normal first pregnancy, unspecified trimester (principal) | CPT/HCPCS: 87081 ==

== ENCOUNTER 2024-01-08 12:10 | Outpatient (CLI) | payer OTHER, SELFPAY ==
[2024-01-08 12:29] VITALS: BMI 36.3
[2024-01-08 12:39] VITALS: BP 123/80; PULSE 102
[2024-01-08 12:48] LABS: Hematocrit 42.7 % (37-47); Hemoglobin 14.9 g/dL (12.0-15.0); Mean Corp Hgb Conc 34.9 g/dL (32-36); Mean Corpuscular Hgb 32.9 pg (27.0-32.0); Mean Corpuscular Volume 94.3 fL (81-99); Mean Platelet Vol. 12.2 fl (6.2-12.0); Platelet Count 207 K/mm3 (150-450); RBC Distribution Width CV 12.5 % (11.6-14.6); RBC Distribution Width SD 43.2 fl (35.1-43.9); Red Blood Count 4.53 M/mm3 (4.2-5.4); White Blood Count 10.8 K/mm3 (4.4-11.0)
[2024-01-08 12:49] VITALS: BP 131/85; PULSE 99
[2024-01-08 12:59] VITALS: BP 130/85; PULSE 108
[2024-01-08 13:01] LABS: AST(SGOT) 19 U/L (15-37); Alanine Aminotransfer ALT/SGPT 27 U/L (13-56); Creatinine, Serum 0.76 mg/dL (0.55-1.02); EST Glomerular Filtration Rate 95 mL/min (>60); Est Glom Filt Rate - Afr Amer 115 mL/min (>60); Estimated Creatinine Clearance 130.55 ml/min; Protein, Urine (Random) 15.2 mg/dL (<11.9); Protein:Creat Ratio 250 mg/g CRE (0-200); Uric Acid 4.2 mg/dL (2.6-6.0)
[2024-01-08 13:08] VITALS: BP 142/86; PULSE 100
[2024-01-08 13:18] VITALS: BP 137/80; PULSE 111
--- NOTE | 2024-01-12 17:33 | OB.TRI.HP_ITS ---
HPI - General General Date of Service: 01/08/24 HPI Narrative ALENA OSHEA, is a 28 F who presents at 37.2 for elevated BP in surgery clinic and not feeling well today. active fetus, denies h/a, visual changes, RUQ pain, lof, vb, ctx Maternal Data Information ABIODUN Calculator Estimated Delivery Date Method Current WG Current Estimate 01/27/24 Ultrasound #1 37w 6d Other Estimates 01/18/24 LMP (Certain) 39w 1d 01/22/24 Conception 38w 4d PFSH PFSH Medical History Acute sinusitis, unspecified Anxiety Depression Heartburn Non-smoker Home Medications loratadine 10 mg capsule (Claritin Liqui-Gel) 10 mg PO DAILY 12/06/18 [History Last Taken 12/12/18] cholecalciferol (vitamin D3) 25 mcg (1,000 unit) tablet (Vitamin D3) 25 mcg PO QODAY 06/18/21 [History Last Taken Unknown] multivitamin with minerals (Hair,Skin and Nails tablet) 1 tab PO DAILY 06/18/21 [History Last Taken Unknown] mupirocin 2 % topical ointment 1 applic topical BID #22 grams 05/15/23 [Rx Last Taken Unknown] sertraline 50 mg tablet (Zoloft) 50 mg PO DAILY 06/13/23 [History Last Taken Unknown] promethazine 12.5 mg tablet 12.5 mg PO Q6H PRN nausea and vomiting #30 tabs 06/26/23 [Rx Last Taken Unknown] ondansetron 4 mg disintegrating tablet 4 mg PO Q8H PRN nausea and vomiting #30 tabs 07/17/23 [Rx Last Taken Unknown] pantoprazole 40 mg tablet,delayed release (Protonix) 40 mg PO DAILY #30 tabs 10/24/23 [Rx Last Taken Unknown] Breast Pump #1 ea 12/27/23 [Rx Last Taken Unknown] Allergy/AdvReac Type Severity Reaction Status Date / Time sulfamethoxazole AdvReac Rash Verified 01/09/24 13:58 [From Bactrim] trimethoprim [From Bactrim] AdvReac Rash Verified 01/09/24 13:58 Family History Mother Thyroid disorder hypo Heart disease Father CVA (cerebral vascular accident) Hypertension Sister Thyroid disorder Depression Surgical History Hx of tonsillectomy Hx of wisdom tooth extraction Social History adopted: No household members: spouse housing: house current occupational status: employed 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 current occupational exposures/hazards: Yes pets and animals: Yes history of recent travel: No sexually active: Yes Smoking Status: Never smoker alcohol intake: current details: not while substance use type: does not use jose/shinto: Denominational seatbelt use: always do you feel safe at home: Yes additional social history: Spouse - Adilson - spouses 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 History 1 Elective abortions Hx Para 0 Spontaneous abortions Hx # Term Pregnancies Ectopic pregnancies Hx # Pregnancies Multiple births # of living children Visit Details Expected Delivery Route/Plan Labor Preferences- CB/BF classes: encouraged labor support person: Adilson labor intervention preferences: [] pain management options preferred: was limited intervention, nitrous cut cord/dad catch:maybe : yes PP control planned: discussed discussed possible routes of delivery and associated risks: [] special requests: [] Plans Covid status: declined Flu vaccine: given Tdap vaccine: given Rhogam: na LARC form signed: yes Problem list reviewed and updated with the most current plan of care details and appropriate orders placed. Relevant counseling for the gestational age provided. Continue routine care and follow up unless otherwise noted in visit notes/problem list details OB Flowsheet Initial Weight: Not Recorded Date -?-?-?-?-?-?-?-?-?-?-?-?- EGA Weight BP Urine Prot -?-?-?-?-?-?-?-?-?-?-?-?- Glucose FHR FuHt Pres Dilation -?-?-?-?-?-?-?-?-?-?-?-?- Effaced St Visit Note 06/13/23 -?-?-?-?-?-?-?-?-?-?-?-?- 7w 3d 191 lb 8 oz 109/73 -?-?-?-?-?-?-?-?-?-?-?-?- 168 -?-?-?-?-?-?-?-?-?-?-?-?- KW-CRL not cons with LMP. ABIODUN changed. SM reviewed 07/17/23 -?-?-?-?-?-?-?-?-?-?-?-?- 12w 2d 192 lb 6 oz 123/81 Nega tive -?-?-?-?-?-?-?-?-?-?-?-?- Negative 156 -?-?-?-?-?-?-?-?-?-?-?-?- JV- no lof, vagi nal bleeding, or cramping. no complaints today. 08/16/23 -?-?-?-?-?-?-?-?-?-?-?-?- 16w 4d 195 lb 121/81 Negative -?-?-?-?-?-?-?-?-?-?-?-?- Negative 145 -?-?-?-?-?-?-?-?-?-?-?-?- LC- no vb/crampi ng. anatomy scheduled. declines afp. 09/15/23 -?-?-?-?-?-?-?-?-?-?-?-?- 20w 6d 200 lb 109/72 Negative -?-?-?-?-?-?-?-?-?-?-?-?- Negative 140 -?-?-?-?-?-?-?-?-?-?-?-?- SM- no vb crampi ng 10/10/23 -?-?-?-?-?-?-?-?-?-?-?-?- 24w 3d 208 lb 116/67 -?-?-?-?-?-?-?-?-?-?-?-?- 140 -?-?-?-?-?-?-?-?-?-?-?-?- SM- no vb lof go od fm no regular ctx 11/07/23 -?-?-?-?-?-?-?-?-?-?-?-?- 28w 3d 212 lb 133/84 Negative -?-?-?-?-?-?-?-?-?-?-?-?- Negative 152 28 -?-?-?-?-?-?-?-?-?-?-?-?- MH-No VB, LOF. G ood FM. Larc, tdap. 28 wk labs wnl 11/21/23 -?-?-?-?-?-?-?-?-?-?-?-?- 30w 3d 217 lb 124/82 Negative -?-?-?-?-?-?-?-?-?-?-?-?- Negative 135 31 -?-?-?-?-?-?-?-?-?-?-?-?- KW- no vb/lof/ct x. good fm. 12/05/23 -?-?-?-?-?-?-?-?-?-?-?-?- 32w 3d 216 lb 6 oz 124/80 Nega tive -?-?-?-?-?-?-?-?-?-?-?-?- Negative 135 33 -?-?-?-?-?-?-?-?-?-?-?-?- kw- no vb/lof/ct x. good fm. no concerns 12/20/23 -?-?-?-?-?-?-?-?-?-?-?-?- 34w 4d 221 lb 118/78 -?-?-?-?-?-?-?-?-?-?-?-?- 123 34 -?-?-?-?-?-?-?-?-?-?-?-?- LC- no vb/ctx/lo f. good fm. 01/03/24 -?-?-?-?-?-?-?-?-?-?-?-?- 36w 4d 226 lb 4 oz 116/78 Nega tive -?-?-?-?-?-?-?-?-?-?-?-?- Negative 150 36 Cephalic 1 -?-?-?-?-?-?-?-?-?-?-?-?- 0 -3 JV- no lof , vaginal bleeding, or dec fm. gbs collected. pt was told we could take a peek at patient today but room is not open. may try for next visit. 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 01/09/24 -?-?-?-?-?-?-?-?-?-?-?-?- 37w 3d 226 lb 120/80 Negative -?-?-?-?-?-?-?-?-?-?-?-?- Negative 140 38 Cephalic 1 .5 -?-?-?-?-?-?-?-?-?-?-?-?- 30 -3 Sm- no vb lof good fm no regular ctx Physical Exam Const alert, oriented x3 and no apparent distress Resp normal respiratory effort, normal air movement, no retractions and no use of accessory muscles Cardio regular rate and regular rhythm GI soft to palpation and non-tender Inspection: Palpation: soft Rectal Exam: deferred no CVA tenderness and external exam normal Bimanual Exam - Vag & Uterus: uterus non-tender and other gravid uterus, normal for gestational age OB / External & Speculum: Negative for herpetic lesions Manual OB Exam: estimated gestational size appropriate and presentation cephalic Amniotic Fluid: no amniotic fluid noted Extremity normal to inspection and full ROM Neuro Motor Exam: strength 5/5 throughout and muscle tone normal throughout Deep Tendon Reflexes: Rt Patellar (L4): 2+ and Lt Patellar (L4): 2+ NST FHR Rate Baby A Baseline: 145 Variability:: Moderate Accelerations:: 15 x 15 Decelerations:: None NST Reactive:: Yes FHR Category:: Category I Assessment & Plan (1) Elevated BP without diagnosis of hypertension: COMMENT: PEC labs negative, normal BP in WP plan f/u monday. PLAN: Patient presents for triage evaluation secondary to elevated BP at work. normal bp in WP with normal PEC labs. FHT: Moderate variability reactive no decelerations category I tracing Elverta: irregular non painful Contractions Assessment and plan: Reactive NST, reassuring maternal and status patient discharged to home to follow-up tomorrow in office for BP check. See problem list details for additional plan information. Charges/Coding Visit Charges Office Visits / Consults: 74172 OP Consult L3 Procedures Urinary/Genital 52xxx-59xxx: 57443-50 non-stress test Interp Multi Select Codes Urinary/Genital Urinary/Genital CPT Codes: 49844-50 non-stress test Interp
== END 2024-01-08 13:32 | disposition home or self-care (01) ==
LOC: WPOUT 12:15 → WP 12:16
PROVIDERS: PCP Family Medicine; Referring Provider Obstetrics & Gynecology; Visit Provider Obstetrics & Gynecology
DX: O99.891 Other specified diseases and conditions complicating pregnancy (principal); R03.0 Elevated blood-pressure reading, without diagnosis of hypertension; Z3A.37 37 weeks gestation of pregnancy; O99.343 Other mental disorders complicating pregnancy, third trimester; F41.9 Anxiety disorder, unspecified; Z79.899 Other long term (current) drug therapy; R12 Heartburn
CPT/HCPCS: 36415; 59025; 59050; 82565; 82570; 84156; 84450; 84460; 84550; 85027; 99221; G0378

== ENCOUNTER 2024-01-27 20:55 | Inpatient (IN) | payer OTHER, SELFPAY ==
[2024-01-27] VITALS (29 sets, daily range): BP systolic 121–136; BP diastolic 60–91; PULSE 74–84; RESP 18; TEMP 36.7–36.8; O2SAT 84–100; BMI 36.6
[2024-01-27 21:27] LABS: Absolute Lymphocyte Count 1.77 X10^3/uL (0.83-4.51); Absolute Neutrophil Count 10.7 X10^3/uL (2.0-7.7); Basophil# 0.02 X10^3/uL; Basophil% 0.1 % (0-1); Eosinophil# 0.06 X10^3/uL; Eosinophils% 0.4 % (0-5); Hematocrit 39.6 % (37-47); Hemoglobin 13.8 g/dL (12.0-15.0); Lymphocyte # 1.77 X10^3/ul (0.83-4.51); Lymphocyte % 13.2 % (19-41); Mean Corp Hgb Conc 34.8 g/dL (32-36); Mean Corpuscular Hgb 32.9 pg (27.0-32.0); Mean Corpuscular Volume 94.5 fL (81-99); Mean Platelet Vol. 12.8 fl (6.2-12.0); Monocyte# 0.89 X10^3/uL; Monocyte% 6.6 % (0-10); NRBC Flagged by Analyzer 0 % (0-5); Neutrophil # 10.65 X10^3/uL (2.7-7.7); Neutrophil % 79.2 % (47-70); Platelet Count 178 K/mm3 (150-450); RBC Distribution Width CV 12.4 % (11.6-14.6); RBC Distribution Width SD 42.2 fl (35.1-43.9); Red Blood Count 4.19 M/mm3 (4.2-5.4); White Blood Count 13.5 K/mm3 (4.4-11.0)
[2024-01-27] MEDS: LACTATED RINGERS 500 ML 999 ML IV (21:34)
[2024-01-27] MEDS: Oxytocin 15 Units/NS 250ml 15 UNITS/250 ML IV.SOLN 83 UNITS IV (21:50)
[2024-01-27] MEDS: Lidocaine 1% (20 ml mdv) 20 ML Vial INFILT (21:50)
[2024-01-27] MEDS: fentaNYL 100 MCG/2 ML Ampul IV (21:57)
--- NOTE | 2024-01-27 22:18 | HP.PCM.OB_ITS ---
HPI - General General Date of Admission: 01/27/24 Date of Service: 01/27/24 HPI Narrative LAENA OSHEA, is a 28 F 1/0 40.0 weeks who presents to unit in active labor. SVE 7-/-1 with buldging bag. Maternal Data Information ABIODUN Calculator Estimated Delivery Date Method Current WG Current Estimate 01/27/24 Ultrasound #1 40w 0d Other Estimates 01/18/24 LMP (Certain) 41w 2d 01/22/24 Conception 40w 5d Final ABIODUN: 01/27/24 Final ABIODUN Source: US >20 weeks Gestational age: 40.0 PFSH PFSH Medical History Acute sinusitis, unspecified Anxiety Depression Heartburn Non-smoker Home Medications loratadine 10 mg capsule (Claritin Liqui-Gel) 10 mg PO DAILY 12/06/18 [History Last Taken 12/12/18] cholecalciferol (vitamin D3) 25 mcg (1,000 unit) tablet (Vitamin D3) 25 mcg PO QODAY 06/18/21 [History Last Taken Unknown] multivitamin with minerals (Hair,Skin and Nails tablet) 1 tab PO DAILY 06/18/21 [History Last Taken Unknown] mupirocin 2 % topical ointment 1 applic topical BID #22 grams 05/15/23 [Rx Last Taken Unknown] sertraline 50 mg tablet (Zoloft) 50 mg PO DAILY 06/13/23 [History Last Taken Unknown] promethazine 12.5 mg tablet 12.5 mg PO Q6H PRN nausea and vomiting #30 tabs 06/26/23 [Rx Last Taken Unknown] ondansetron 4 mg disintegrating tablet 4 mg PO Q8H PRN nausea and vomiting #30 tabs 07/17/23 [Rx Last Taken Unknown] pantoprazole 40 mg tablet,delayed release (Protonix) 40 mg PO DAILY #30 tabs 10/24/23 [Rx Last Taken Unknown] Breast Pump #1 ea 12/27/23 [Rx Last Taken Unknown] Allergy/AdvReac Type Severity Reaction Status Date / Time sulfamethoxazole AdvReac Rash Verified 01/23/24 13:53 [From Bactrim] trimethoprim [From Bactrim] AdvReac Rash Verified 01/23/24 13:53 Family History Mother Thyroid disorder hypo Heart disease Father CVA (cerebral vascular accident) Hypertension Sister Thyroid disorder Depression Surgical History Hx of tonsillectomy Hx of wisdom tooth extraction Social History adopted: No household members: spouse housing: house current occupational status: employed current occupation: [email or web address] current occupational exposures/hazards: Yes pets and animals: Yes history of recent travel: No sexually active: Yes Smoking Status: Never smoker alcohol intake: current details: not while substance use type: does not use jose/evangelical: Mormonism seatbelt use: always do you feel safe at home: Yes additional social history: Spouse - Adilson - 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 History 1 Elective abortions Hx Para 0 Spontaneous abortions Hx # Term Pregnancies Ectopic pregnancies Hx # Pregnancies Multiple births # of living children Visit Details Expected Delivery Route/Plan Labor Preferences- CB/BF classes: encouraged labor support person: Adilson labor intervention preferences: [] pain management options preferred: was limited intervention, nitrous cut cord/dad catch:maybe : yes PP control planned: discussed discussed possible routes of delivery and associated risks: [] special requests: [] Plans Covid status: declined Flu vaccine: given Tdap vaccine: given Rhogam: na LARC form signed: yes Problem list reviewed and updated with the most current plan of care details and appropriate orders placed. Relevant counseling for the gestational age provided. Continue routine care and follow up unless otherwise noted in visit notes/problem list details OB Flowsheet Initial Weight: Not Recorded Date -?-?-?-?-?-?-?-?-?-?-?-?- EGA Weight BP Urine Prot -?-?-?-?-?-?-?-?-?-?-?-?- Glucose FHR FuHt Pres Dilation -?-?-?-?-?-?-?-?-?-?-?-?- Effaced St Visit Note 06/13/23 -?-?-?-?-?-?-?-?-?-?-?-?- 7w 3d 191 lb 8 oz 109/73 -?-?-?-?-?-?-?-?-?-?-?-?- 168 -?-?-?-?-?-?-?-?-?-?-?-?- KW-CRL not cons with LMP. ABIODUN changed. SM reviewed 07/17/23 -?-?-?-?-?-?-?-?-?-?-?-?- 12w 2d 192 lb 6 oz 123/81 Nega tive -?-?-?-?-?-?-?-?-?-?-?-?- Negative 156 -?-?-?-?-?-?-?-?-?-?-?-?- JV- no lof, vagi nal bleeding, or cramping. no complaints today. 08/16/23 -?-?-?-?-?-?-?-?-?-?-?-?- 16w 4d 195 lb 121/81 Negative -?-?-?-?-?-?-?-?-?-?-?-?- Negative 145 -?-?-?-?-?-?-?-?-?-?-?-?- LC- no vb/crampi ng. anatomy scheduled. declines afp. 09/15/23 -?-?-?-?-?-?-?-?-?-?-?-?- 20w 6d 200 lb 109/72 Negative -?-?-?-?-?-?-?-?-?-?-?-?- Negative 140 -?-?-?-?-?-?-?-?-?-?-?-?- SM- no vb crampi ng 10/10/23 -?-?-?-?-?-?-?-?-?-?-?-?- 24w 3d 208 lb 116/67 -?-?-?-?-?-?-?-?-?-?-?-?- 140 -?-?-?-?-?-?-?-?-?-?-?-?- SM- no vb lof go od fm no regular ctx 11/07/23 -?-?-?--?-?-?-?-?-?-?-?-?- 28w 3d 212 lb 133/84 Negative -?-?-?-?-?-?-?-?-?-?-?-?- Negative 152 28 -?-?-?-?-?-?-?-?-?-?-?-?- MH-No VB, LOF. G ood FM. Larc, tdap. 28 wk labs wnl 11/21/23 -?-?-?-?-?-?-?-?-?-?-?-?- 30w 3d 217 lb 124/82 Negative -?-?-?-?-?-?-?-?-?-?-?-?- Negative 135 31 -?-?-?-?-?-?-?-?-?-?-?-?- KW- no vb/lof/ct x. good fm. 12/05/23 -?-?-?-?-?-?-?-?-?-?-?-?- 32w 3d 216 lb 6 oz 124/80 Nega tive -?-?-?-?-?-?-?-?-?-?-?-?- Negative 135 33 -?-?-?-?-?-?-?-?-?-?-?-?- kw- no vb/lof/ct x. good fm. no concerns 12/20/23 -?-?-?-?-?-?-?-?-?-?-?-?- 34w 4d 221 lb 118/78 -?-?-?-?-?-?-?-?-?-?-?-?- 123 34 -?-?-?-?-?-?-?-?-?-?-?-?- LC- no vb/ctx/lo f. good fm. 01/03/24 -?-?-?-?-?-?-?-?-?-?-?-?- 36w 4d 226 lb 4 oz 116/78 Nega tive -?-?-?-?-?-?-?-?-?-?-?-?- Negative 150 36 Cephalic 1 -?-?-?-?-?-?-?-?-?-?-?-?- 0 -3 JV- no lof , vaginal bleeding, or dec fm. gbs collected. pt was told we could take a peek at patient today but room is not open. may try for next visit. 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 01/09/24 -?-?-?-?-?-?-?-?-?-?-?-?- 37w 3d 226 lb 120/80 Negative -?-?-?-?-?-?-?-?-?-?-?-?- Negative 140 38 Cephalic 1 .5 -?-?-?-?-?-?-?-?-?-?-?-?- 30 -3 Sm- no vb lof good fm no regular ctx 01/17/24 -?-?-?-?-?-?-?-?-?-?-?-?- 38w 4d 225 lb 4 oz 130/83 Nega tive -?-?-?-?-?-?-?-?-?-?-?-?- Negative 130 38 Cephalic 1 -?-?-?-?-?-?-?-?-?-?-?-?- -3 MH-No Vb , LOF or reg CTX. 01/23/24 -?-?-?-?-?-?-?-?-?-?-?-?- 39w 3d 226 lb 8 oz 131/79 Nega tive -?-?-?-?-?-?-?-?-?-?-?-?- Negative 129 39 Cephalic 2 -?-?-?-?-?-?-?-?-?-?-?-?- 60 -3 JV- head b allotable still. markie 16 today. labor precautions discussed. NST FHR Rate Baby A Baseline: 135 Variability:: Moderate Accelerations:: 15 x 15 Decelerations:: None NST Reactive:: Yes FHR Category:: Category I Uterine Activity:: 2-3 minutes ROS Constitutional Constitutional: Denies change in weight, fatigue, fever(s), headache(s), poor appetite or weakness Eyes Eyes: Denies blurry vision, change in vision, floaters, seeing flashes or spots in vision ENT HEENT: Denies dizziness, headache(s), loss taste/smell or sore throat Cardiovascular Cardiovascular: Denies chest pain, dizziness, dyspnea, irregular heart rhythm, lightheadedness, palpitations or rapid heart rate Respiratory/Chest Respiratory/Chest: Denies change in mental status, chest tightness, cough, dyspnea or breast pain Gastrointestinal Gastrointestinal: Denies anorexia, chewing difficulty, constipation, diarrhea or weight changes Genitourinary Genitourinary: Denies difficulty urinating, dysuria, flank pain, genital pain, urinary frequency or urinary urgency Musculoskeletal Musculoskeletal: Denies back pain, difficulty walking, extremity pain, joint pain, muscle cramps or muscle weakness Integumentary Integumentary: Denies lesions or unusual bruising Neurologic Neurologic: Denies abnormal movements, abnormal speech, dizziness, numbness, seizure-like activity, syncope or weakness Psychiatric Psychiatric: Denies behavioral changes, change in appetite, confusion, depression, homicidal ideation, suicidal ideation or suicidal thoughts Endocrine Endocrinology: Denies excessive sweating, polydipsia or polyuria Hematologic/Lymphatic Hematologic/Lymphatic: Denies anemia Allergic/Immunologic Allergic/Immunologic: Denies itchy eyes, lip swelling, throat swelling, tongue swelling or wheezing Vital Signs Vital Signs Vital Signs: 01/27/24 21:01 01/27/24 21:01 01/27/24 21:06 Pulse Rate 83 79 Blood Pressure BP Systolic BP Diastolic Pulse Ox 100 01/27/24 21:06 01/27/24 21:07 01/27/24 21:07 Pulse Rate 82 Blood Pressure 136/91 H BP Systolic 136 BP Diastolic 91 Pulse Ox 100 01/27/24 21:34 01/27/24 22:16 01/27/24 22:16 Pulse Rate 74 Blood Pressure 136/64 H BP Systolic 136 BP Diastolic 64 Pulse Ox 84 01/27/24 22:17 01/27/24 22:17 Pulse Rate 82 Blood Pressure BP Systolic BP Diastolic Pulse Ox 96 Physical Exam Const alert, oriented x3 and no apparent distress General Appearance: cooperative Orientation / Consciousness: awake HEENT normocephalic Neck full ROM Lymph Lymphatic: no lymphadenopathy noted Chest inspection of chest normal Resp normal respiratory effort and normal air movement Effort and Inspection: able to speak in complete sentences and symmetric chest movement GI soft to palpation and non-tender Inspection: gravid Palpation: soft; Negative for tender external exam normal Back/Spine normal to inspection Extremity normal to inspection and full ROM Skin no rashes or lesions noted Psych mental status grossly normal Appearance: grossly normal Speech: normal speech Labs Labs Labs: Blood Type O POSITIVE Antibody Screen NEGATIVE Hct 39.6 % (37-47) Hgb 13.8 g/dL (12.0-15.0) Obstetrics Ultrasound Syphilis Total Ab Non-reactive VZV IgG Antibody 2386 index (Immune >165) Rubella IgG Antibody Reactive (Nonreactive) Hep Bs Antigen Non-Reactive (Nonreactive) Hepatitis C Antibody Non-Reactive (Nonreactive) Chlamydia DNA (DOMINIQUE) Negative (Negative) N.gonorrhoeae DNA (DOMINIQUE) Negative (Negative) HIV 1&2 Antibody Non-Reactive (Nonreactive) Glucose 1 Hr 50 gm 129 mg/dL (70-140) Assessment & Plan (1) Active labor at term: PLAN: Patient presents IAL, plan expectant management for , pitocin/AROM PRN if needed. Pain management: plans no epidural. GBS neg. Management of any complications: none I have reviewed the [facility] and made any clinically relevant updates. (2) Elevated BP without diagnosis of hypertension: COMMENT: PEC labs negative, normal BP in WP plan f/u monday. (3) Supervision of normal first : QUALIFIERS: Trimester: third trimester Qualified Code(s): Z34.03 - Encounter for supervision of normal first , third trimester COMMENT: PRR, ABIODUN 01/27/24 boy Spouse Adilson (4) : QUALIFIERS: Weeks of gestation: 39 weeks Qualified Code(s): Z3A.39 - 39 weeks gestation of COMMENT: Neg GBS. Declines NIPT, carrier, and ntd screen, nl anatomy & consistent ABIODUN Charges/Coding Multi Select Codes Urinary/Genital Urinary/Genital CPT Codes: No Charge
--- NOTE | 2024-01-27 22:21 | EX.PCM.OBRPT ---
Assessment & Plan (1) Vaginal delivery: COMMENT: KW IAL 40.0 Boy (2) Elevated BP without diagnosis of hypertension: COMMENT: PEC labs negative, normal BP in WP plan f/u monday. (3) Supervision of normal first : QUALIFIERS: Trimester: third trimester Qualified Code(s): Z34.03 - Encounter for supervision of normal first , third trimester COMMENT: PRR, ABIODUN 01/27/24 boy Spouse Adilson (4) : QUALIFIERS: Weeks of gestation: 39 weeks Qualified Code(s): Z3A.39 - 39 weeks gestation of COMMENT: Neg GBS. Declines NIPT, carrier, and ntd screen, nl anatomy & consistent ABIODUN Maternal Data Information ABIODUN Calculator Estimated Delivery Date Method Current WG Current Estimate 01/27/24 Ultrasound #1 40w 0d Other Estimates 01/18/24 LMP (Certain) 41w 2d 01/22/24 Conception 40w 5d Final ABIODUN: 01/27/24 Final ABIODUN Source: US >20 weeks Gestational age: 40.0 Vaginal Delivery Maternal Presentation Maternal Presentation: Active Labor Maternal Presentation: Progressed well to 10cm dilated and made steady progress with effective maternal pushing. heart rate was noted to be in the 80s for several minutes. Ped notified and called to room per nursing and Dr Nieto called in for kiwi assistance if not delivered by time she arrived. Effective maternal pushing noted and small episiotomy made to expedite delivery. Delivered the head in INO presentation. The head was delivered atraumatically and no nuchal cord was identified. The anterior and posterior shoulders delivered without complication followed by the rest of the infant and the was placed on the maternal abdomen. Dr Nieto called and notified of delivery. Delayed cord clamping was employed for approximately 3 minutes. Cord was clamped and cut and gentle traction was applied to the cord and the placenta delivered spontaneously. Immediately following, it was noted to be intact with a 3 vessel cord. The perineum and vagina were inspected and noted to have a small second degree laceration which was repaired with 3-0 Vicryl in the usual fashion. EBL was 200cc. Patient and tolerated delivery well. Apgars 8/9. Dr Nieto notified of vaginal delivery and orders reviewed. Physician agrees with current plan of care. Operative Information Date of Procedure: 01/27/24 Pre-Operative Diagnosis: See AP comments Post-Operative Diagnosis: Same Surgery / Procedure Performed: Spontaneous Vaginal Delivery fundraising manager #1: Verito Smith Type of Anesthesia: None Estimated Blood Loss: 100 Time of Delivery: 21:40 Findings Presentation: Vertex Amniotic Membrane Rupture Type: Spontaneous Time of Membrane Rupture: 2120 Amniotic Fluid Description: Clear Placental Delivery Description: Spontaneous Placenta Disposition: [facility] Cord Vessel Description: 3 Vessels Cord Entanglement: None Cord Gases: ABG and VBG Infant A Gender: Male (1 minute): 8 (5 minute): 9 Delayed Cord Clamping: Yes Post Vaginal Delivery Medications Given After Delivery: IV Pitocin Episiotomy Description: Right Mediolateral Laceration: 2nd degree Complication Complications: None Multi Select Codes Urinary/Genital Urinary/Genital CPT Codes: 79011 Vaginal Delivery [facility]
--- NOTE | 2024-01-27 22:27 | DCINST_ITS ---
Discharge Instructions Diet Discharge Diet: No restrictions Activity Discharge Activity: Return to Normal Activity May resume sexual activity in: 6-8 weeks Dressing / Incision Call your doctor if you observe: Fever of 101 or Higher, Coldness, Increased Pain, Numbness or Tingling, Change in Color, Inability to urinate, Inability to have a bowel movement, Using more than 1 pad per hour, Shortness of breath, Dizziness, Fainting spells, Swelling in the ankles, Chest pain, Increased palpitations (irregular heartbeat), Calf discomfort and Uncontrolled pain Follow Up Care Please Follow Up With: Verito Smith CNM When: Please call the office to schedule your follow up appointment in 6 weeks. If you had high blood pressure please call to schedule an appointment in 2 weeks. Test Results: Test results from this visit will be discussed in further detail at your follow- up appointment, if applicable. Discharge Plan Admission Admit Date/Time: 01/27/24 20:55 Attending Provider: Verito Smith Primary Care Provider: Jesse Piña Discharge Orders/Prescriptions Prescriptions: No Action mupirocin 2 % ointment 1 applic topical BID Qty: 22 0RF Rx Instructions: apply bid x 14 days sertraline [Zoloft] 50 mg tablet 50 mg PO DAILY ondansetron 4 mg tablet,disintegrating 4 mg PO Q8H PRN (Reason: nausea and vomiting) Qty: 30 4RF loratadine [Claritin Liqui-Gel] 10 MG capsule 10 mg PO DAILY multivitamin with minerals [Hair,Skin and Nails] Tablet 1 tab PO DAILY cholecalciferol (vitamin D3) [Vitamin D3] 25 mcg (1,000 unit) Tablet 25 mcg PO QODAY promethazine 12.5 mg tablet 12.5 mg PO Q6H PRN (Reason: nausea and vomiting) Qty: 30 0RF pantoprazole [Protonix] 40 mg tablet,delayed release (DR/EC) 40 mg PO DAILY Qty: 30 6RF (DME) Breast Pump See Rx Instructions .Route .MEDSUPPLY Qty: 1 0RF Rx Instructions: As directed Referrals / Follow Up: Jesse Piña MD [Primary Care Provider] -
[2024-01-28] VITALS (10 sets, daily range): BP systolic 113–132; BP diastolic 65–82; PULSE 78–88; RESP 16–18; TEMP 36.7–37; O2SAT 95–98
[2024-01-28] MEDS: 0.9% Saline Lock 10 ML Syringe IV ×2 (00:13→00:54)
--- NOTE | 2024-01-28 01:47 | NURSING ---
Report given to Sravani TELLEZ, taking over pt and care at this time.
--- NOTE | 2024-01-28 05:36 | PCM.PN.OB ---
Subjective Subjective Patient doing well without complaints. Tolerating PO. Ambulating and voiding without difficulty. Feeding well. Denies chest pain, shortness of breath, calf pain/swelling, fevers, chills, lightheadedness. Objective Data Objective Data Vital Signs: Vital Signs Temp Pulse Resp BP Pulse Ox O2 Del Method 98.5 F 88 16 132/69 H 95 Room Air 01/28/24 03:35 01/28/24 03:35 01/28/24 03:35 01/28/24 03:35 01/28/24 03:35 01/28/24 03:35 Oxygen Delivery Method Room Air Weight: 226 lb 12.8 oz Body Mass Index (BMI) 36.6 Intake & Output: Intake and Output for Last 24 Hours 01/26/24 01/27/24 01/28/24 23:59 23:59 23:59 Intake Total 99.9 / 99.9 250 / 250 Output Total 200 / 200 400 / 400 Balance -100.1 / -100.1 -150 / -150 Lab / Micro Data Attestation: I reviewed the patient's lab results. 01/27/24 21:05 Labs: Laboratory Results - last 24 hr 01/27/24 21:05: WBC 13.5 H, RBC 4.19 L, Hgb 13.8, Hct 39.6, MCV 94.5, MCH 32.9 H, MCHC 34.8, RDW Std Deviation 42.2, RDW Coeff of Yamila 12.4, Plt Count 178, MPV 12.8 H, Immature Gran % (Auto) 0.500, Neut % (Auto) 79.2 H, Lymph % (Auto) 13.2 L, [place] % (Auto) 6.6, Eos % (Auto) 0.4, Baso % (Auto) 0.1, Absolute Neuts (auto) 10.7 H, Absolute Lymphs (auto) 1.77, Nucleated RBC % 0, Blood Type O POSITIVE, Antibody Screen NEGATIVE ROS Constitutional Constitutional: Reports systems reviewed and no addt'l complaints, except as documented; Denies anorexia or headache(s) Cardiovascular Cardiovascular: Reports systems reviewed and no addt'l complaints, except as documented; Denies dizziness, dyspnea, nausea or tachypnea Respiratory/Chest Respiratory/Chest: Reports systems reviewed and no addt'l complaints, except as documented; Denies cough, dyspnea, shortness of breath at rest or tachypnea Gastrointestinal Gastrointestinal: Reports systems reviewed and no addt'l complaints, except as documented; Denies abdominal pain, constipation or nausea Genitourinary Genitourinary: Reports systems reviewed and no addt'l complaints, except as documented; Denies burning urination, difficulty urinating, dysuria, urinary frequency or urinary incontinence Musculoskeletal Musculoskeletal: Reports systems reviewed and no addt'l complaints, except as documented Integumentary Integumentary: Reports systems reviewed and no addt'l complaints, except as documented Neurologic Neurologic: Reports systems reviewed and no addt'l complaints, except as documented; Denies abnormal speech, dizziness or headache(s) Psychiatric Psychiatric: Reports systems reviewed and no addt'l complaints, except as documented Endocrine Endocrinology: Reports systems reviewed and no addt'l complaints, except as documented Hematologic/Lymphatic Hematologic/Lymphatic: Reports systems reviewed and no addt'l complaints, except as documented Physical Exam Const alert, oriented x3 and no apparent distress Neck full ROM Resp normal respiratory effort, normal air movement and no retractions Effort and Inspection: able to speak in complete sentences and symmetric chest movement GI soft to palpation Bladder / Kidney Exam: bladder normal to palpation Uterus Palpation: uterus fundus firm Extremity normal to inspection and full ROM Psych mental status grossly normal, thought process normal and cooperative Assessment & Plan (1) Vaginal delivery: COMMENT: KW IAL 40.0 Boy PLAN: s/p PPD # 1 1. routine post delivery care 2. breast feeding- support given 3. rh positive 4. rubella immune Charges/Coding Multi Select Codes Urinary/Genital Urinary/Genital CPT Codes: No Charge
[2024-01-28] MEDS: Sertraline 50 MG Tablet PO (21:47)
[2024-01-29 02:20] VITALS: BP 126/84; PULSE 87; RESP 18; TEMP 36.6; O2SAT 97
--- NOTE | 2024-01-29 05:42 | PCM.PN.OB ---
Subjective Subjective Patient doing well without complaints. Tolerating PO. Ambulating and voiding without difficulty. feeding well. Denies chest pain, shortness of breath, calf pain/swelling, fevers, chills, lightheadedness. Objective Data Objective Data Vital Signs: Vital Signs Temp Pulse Resp BP Pulse Ox O2 Del Method 97.9 F 87 18 126/84 H 97 Room Air 01/29/24 02:20 01/29/24 02:20 01/29/24 02:20 01/29/24 02:20 01/29/24 02:20 01/29/24 02:20 Oxygen Delivery Method Room Air Weight: 226 lb 12.8 oz Body Mass Index (BMI) 36.6 Intake & Output: Intake and Output for Last 24 Hours 01/27/24 01/28/24 01/29/24 23:59 23:59 23:59 Intake Total 99.9 / 99.9 250 / 250 Output Total 200 / 200 400 / 400 Balance -100.1 / -100.1 -150 / -150 Lab / Micro Data 01/27/24 21:05 ROS Constitutional Constitutional: Reports systems reviewed and no addt'l complaints, except as documented Cardiovascular Cardiovascular: Reports systems reviewed and no addt'l complaints, except as documented Respiratory/Chest Respiratory/Chest: Reports systems reviewed and no addt'l complaints, except as documented Gastrointestinal Gastrointestinal: Reports systems reviewed and no addt'l complaints, except as documented Physical Exam Const alert, oriented x3 and no apparent distress HEENT Head and Scalp: atraumatic Resp normal respiratory effort GI soft to palpation and non-tender Bimanual Exam - Vag & Uterus: uterus non-tender Uterus Palpation: uterus fundus firm (below Umbilicus) Assessment & Plan (1) Vaginal delivery: COMMENT: KW IAL 40.0 Boy (2) Elevated BP without diagnosis of hypertension: COMMENT: PEC labs negative, normal BP in WP plan f/u monday. PLAN: Plan s/p PPD # 2 1. routine post delivery care 2. breast feeding- support given 3. rh positive 4. rubella immune
[2024-01-29 08:10] VITALS: BP 125/90; PULSE 61; RESP 16; TEMP 36.2; O2SAT 98
--- NOTE | 2024-01-29 11:21 | CASEMGMT ---
Social Work Assessment Labor and Delivery Unit Patient Address: [address] [place] [address] Phone number: [phone] Date of Referral: 01/28/24 Time of Referral:? 0122 Referred By: Verito Smith Date of Intervention: ??01/29/24 Time of Intervention:? 1040 Reason for Referral:? anxiety, depression Sw completed chart review and acknowledges social work consult due to maternal mental health history of anxiety and depression. Sw presented to bedside and met with mother of baby (MOB- Ashley) and father of baby (FOB- Adilson). Sw explained reason for sw involvement and completed psychosocial assessment. History obtained from: medical records, MOB and FOB Household composition: Currently residing in the home is MOB, FOB and now baby when ready for dc. Parents report that they recently purchased land and are going to be starting their build this month. Parents deny and issues or concerns with their housing. Patient's parent/guardian status:? ?MOB and FOB are . They were introduced to each other by mutual friends. No issues or concerns reported of domestic violence or intimate partner violence. RAGHAVENDRA was observed to be mindful of MOB and baby during sw intervention. Medical History: ?JD is 28 year old female who is 1, para 0- now 1 following labor and delivery of . JD received care throughout with [facility]. JD presented to hospital in active labor and delivered baby via vaginal delivery on 01/27/24 at 40 weeks gestation. Baby boy, named Meliton Agosto, was born weighing 7lb 2oz with apgars of 8 and 9 at one and five minutes of life, respectfully. JD states that she is breast feeding and that is going okay. JD is not sure at this time if she wants to follow up with outpatient. JD reports that baby will be followed by [facility] in [place]. Educational Status:? Both parents graduated from high school, no concerns with reading, learning or comprehension. Both parents also have advanced training/ education. 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 He states that he is able to have off this whole week and more if necessary. 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 Infant Supplies:?? Parents report that they have obtained all necessary baby supplies, including: car seat, safe sleep space, clothes, diapers and wipes. Childcare/Caregiver(s):? JD states that she has people who would be able to provide childcare for them once she returns to work. However she would need to drive the baby to and from their house early in te morning and she does not want to have to wake him up. 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 Transportation:?? No transportation barriers or needs at this time. Both parents have their drivers license, and dependable means of transportation. Programs/Agencies Involved: ?Parents deny linkage to any community resources that assist them financially. JD is not connected to any mental health services or supports. ?? Children Services/Legal Issues:?No history of involvement, no issues or concerns warranting referral at this time. ?? Behavioral Health Issues: ??Mental Health History:??FOB denies mental health history. JD has a history of anxiety and depression. MOB states that her anxiety is in the form of OCD. MOB states that things have to be done a certain way and in a certain order or it makes her anxious. MOB states that she is prescribed sertraline by her OBGYN. MOB reports that at this time she feels calm and is not nervous or anxious about anything. FOB asked appropriate questions regarding JD's mental health status and what to expect during this period. ? Substance Use History:??Parents deny any substance use, MOB denies use prior to or during . Family History:??Parents deny family history of substance use or significant mental health diagnoses. ??? Drug Screens: ??No drug screens observed during chart review. Family/Social Stressors:? No stressors identified. Support Systems: Both parents state that they have family and friends who are supportive. Primarily MOB's family. Depression/Shaken Baby/Safe Sleeping:? Lila provided education and hand outs on signs and symptoms of baby blues and anxiety and depression. Both parents asked appropriate questions. JD states that she has family members (sisters) who have had . MOB states that she will talk to FOB if she feels as though she is struggling. Lila educated parents on shaken baby prevention and ABCs of safe sleep. Parents express understanding. ASSESSMENT:? MOB and baby admitted following labor and delivery of . MOB open and talkative during sw involvement. MOB with mental health history, but is familiar with signs and symptoms of baby blues and anxiety and depression to be on the lookout for. MOB was observed to be attentive to baby and fed baby during sw assessment. also presented to bedside and worked with MOB. MOB has obtained all necessary baby supplies and has natural supports in place. PLAN:? MOB and baby to be discharged when medically ready. ?No other services requested or indicated. Lynette Bunch, WELLNESS SPA MANAGER, SAP BPC ARCHITECT
[2024-01-29 13:00] VITALS: BP 130/85; PULSE 72; RESP 18; TEMP 35.8
[2024-01-29 17:18] LABS: Syphilis Antibodies Non-reactive
== END 2024-01-29 13:25 | disposition home or self-care (01) | DRG 807 ==
LOC: WPOUT 20:57 → WP 20:57
PROVIDERS: Admitting Provider Advanced Practice Midwife; PCP Family Medicine; Visit Provider Advanced Practice Midwife
DX: O70.1 Second degree perineal laceration during delivery (principal); Z37.0 Single live birth; R03.0 Elevated blood-pressure reading, without diagnosis of hypertension; Z3A.40 40 weeks gestation of pregnancy
CPT/HCPCS: 59025; 59050; 85025; 86780; 86850; 86900; 86901; 99221; J7120; A4216; G0378

== ENCOUNTER 2024-02-05 13:07 | Emergency (ER) | payer OTHER, SELFPAY ==
[2024-02-05 13:08] VITALS: BP 127/93; PULSE 93; RESP 18; TEMP 36.3; O2SAT 98; BMI 32.2
[2024-02-05 13:44] LABS: Absolute Lymphocyte Count 1.71 X10^3/uL (0.83-4.51); Absolute Neutrophil Count 7.6 X10^3/uL (2.0-7.7); Basophil# 0.07 X10^3/uL; Basophil% 0.7 % (0-1); Eosinophil# 0.07 X10^3/uL; Eosinophils% 0.7 % (0-5); Hematocrit 46.8 % (37-47); Hemoglobin 15.9 g/dL (12.0-15.0); Lymphocyte # 1.71 X10^3/ul (0.83-4.51); Lymphocyte % 16.6 % (19-41); Mean Corpuscular Hgb 32.1 pg (27.0-32.0); Mean Corpuscular Volume 94.5 fL (81-99); Mean Platelet Vol. 11.6 fl (6.2-12.0); Monocyte# 0.89 X10^3/uL; Monocyte% 8.6 % (0-10); NRBC Flagged by Analyzer 0 % (0-5); Neutrophil # 7.55 X10^3/uL (2.7-7.7); Platelet Count 274 K/mm3 (150-450); RBC Distribution Width CV 11.8 % (11.6-14.6); RBC Distribution Width SD 40.8 fl (35.1-43.9); Red Blood Count 4.95 M/mm3 (4.2-5.4); White Blood Count 10.3 K/mm3 (4.4-11.0)
[2024-02-05 14:02] LABS: ALB/GLOB Ratio 0.8 RATIO (0.9-2.4); AST(SGOT) 42 U/L (15-37); Alanine Aminotransfer ALT/SGPT 81 U/L (13-56); Albumin, Serum 3.2 g/dL (3.2-5.0); Alkaline Phosphatase 135 U/L (45-117); Anion Gap 4 (5-15); BUN 13 mg/dL (7-18); BUN/Creat Ratio 12.4 RATIO (10-20); Calcium,Total 9.8 mg/dL (8.5-10.1); Chloride 105 mmol/L (98-107); Creatinine, Serum 1.05 mg/dL (0.55-1.02); EST Glomerular Filtration Rate 65 mL/min (>60); Est Glom Filt Rate - Afr Amer 79 mL/min (>60); Estimated Creatinine Clearance 88.86 ml/min; Globulin 3.9 g/dL (2.2-4.2); Glucose 85 mg/dL (74-106); Potassium 4.3 mmol/L (3.5-5.1); Protein, Total 7.1 g/dL (6.4-8.2); Sodium Level 137 mmol/L (136-145)
--- NOTE | 2024-02-05 14:22 | EX.ED.DYSGE1 ---
HPI History of Present Illness Chief Complaint: Abd Pain [facility] Medical History Family history of hearing loss at age younger than 7 years Vaginal delivery Active labor at term Acute sinusitis, unspecified Supervision of normal first Depression Anxiety Heartburn Non-smoker Home Medications ?Medication ?Instructions ?Recorded ?Last Taken ?Type multivitamin with minerals 1 tab PO DAILY 06/18/21 01/26/24 History (Hair,Skin and Nails tablet) sertraline 50 mg tablet (Zoloft) 50 mg PO DAILY anxiety, depression 06/13/23 01/26/24 History pantoprazole 40 mg tablet,delayed 40 mg PO DAILY acid reflux #30 tabs 10/24/23 Unknown Rx release (Protonix) Breast Pump #1 ea 12/27/23 Unknown Rx Allergy/AdvReac Type Severity Reaction Status Date / Time sulfamethoxazole (From AdvReac Rash Verified 02/05/24 13:08 Bactrim) trimethoprim (From Bactrim) AdvReac Rash Verified 02/05/24 13:08 Family History Mother Thyroid disorder hypo Heart disease Father CVA (cerebral vascular accident) Hypertension Sister Thyroid disorder Depression Surgical History Hx of wisdom tooth extraction Hx of tonsillectomy Social History adopted: No household members: spouse housing: house current occupational status: employed 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 current occupational exposures/hazards: Yes pets and animals: Yes history of recent travel: No sexually active: Yes Smoking Status: Never smoker alcohol intake: current details: not while substance use type: does not use jose/cheondoism: Sabianism seatbelt use: always do you feel safe at home: Yes additional social history: Spouse - Adilson - spouses occupation / crab catcher EXAM Physical Exam Const Vital Signs: 02/05/24 13:08 02/05/24 15:07 Temperature 97.4 F L Temperature Source Temporal Pulse Rate 93 76 Respiratory Rate 18 16 Blood Pressure 127/93 H 124/83 H Blood Pressure Mean 104 96 Pulse Ox 98 98 Oxygen Delivery Method Room Air Room Air MDM MDM MDM Narrative Medical decision making narrative: HISTORY OF PRESENT ILLNESS: 28year old female presents with abdominal pain. Notes right lower quad abdominal pain. No status post vaginal delivery on 01/27/2024. REVIEW OF SYSTEMS: All other systems reviewed and are negative except as noted in the history of present illness. At least 10 review of systems reviewed and are negative except as noted in history of present illness. PHYSICAL EXAM: Nursing triage notes reviewed, Vital signs reviewed Constitutional: please see mdm HENT: MMM Eyes: Pupils equal round and reactive to light, Extraocular muscles intact Neck: No stridor, no JVD, full neck ROM Lungs: Clear to auscultation, No wheezing or rales. No increased work of breathing, no conversational dyspnea, no accessory muscle use, no nasal flaring. No respiratory distress noted Heart: Regular rate and rhythm, No murmurs, No rubs and No gallops, 2+ distal pulses (radial, femoral, posterior tibial) in all extremities Abdomen: Negative Barlow sign, soft, no rigidity, rebound or guarding, no obvious peritoneal signs, no palpable pulsatile abdominal masses, no auscultated abdominal bruit : No CVAT Extremities: No edema Neuro: No focal neurological deficits, cranial nerves II through XII intact, 5/5 strength in all extremities. Intact sensation to light touch in all extremities, 2+ reflexes bilateral patella tendons. Normal gait. No ataxia. Skin: No rash or lesions noted MEDICAL DECISION MAKING: Chief Complaint: abdominal pain External records reviewed: recent adVanced imaging of the abdomen pelvis Factors affecting care: History obtained from others: friend Consults: none [facility] Narrative: patient was hemodynamically stable, afebrile and nontoxic-appearing. Abdominal exam benign I considered the following differential diagnosis: AAA, small bowel obstruction, abdominal perforation, appendicitis, pancreatitis, hepatobiliary pathology (acute cholecystitis), mesenteric ischemia, abnormalities such as pyelonephritis, nephrolithiasis Triage labs were placed and reviewed: ALL IMAGES (IF OBTAINED) HAVE BEEN PERSONALLY REVIEWED AND INTERPRETED BY MYSELF. CMP without evidence of acute kidney injury, significant electrolyte abnormality, anion gap, no evidence hepatobiliary pathology. CBC without leukocytosis, severe anemia, no thrombocytopenia. I added lipase, lipase is normal limits I did share decision-making discussion the patient. I stated the patient's benign exam, lack of white count, lack of an anion gap or signs of metabolic acidosis make sure low risk for having acute appendicitis or other acute intra-abdominal pathology. I shared with her her risk of CT induced malignancy versus risk of missed diagnosis. She preferred to go through with a CT scan. CT scan was obtained and showed no evidence of intra-abdominal pathology including no evidence of gallstones or acute appendicitis. I see nothing that would suggest an acute abdomen at this time. Based on history physical exam, risk factors, my suspicion for bowel obstruction, incarcerated hernia, perforated viscus, acute cholecystitis, appendicitis is very low. There is no evidence of peritonitis sepsis or toxicity at this time. I feel the patient can be managed as an outpatient with follow-up with her/his primary physician in the next 24 to 48 hours or soon as possible. Instructions have been given for the patient to return to the ED for worsening pain, anorexia, high fevers, intractable vomiting or bleeding. The patient and/or family, caregivers express understanding. The patient and/or family, caregivers agrees with the plan. Total critical care time today provided was at least 0 minutes. This excludes separately billable procedures. Critical care time (if documented) is secondary to the patient having high probability of clinically significant/life threatening deterioration in the patient's condition which required my urgent intervention. Shared decision making: I will have a discussion with the patient and or visitors regarding risk/benefits of further testing or admission. They will be made aware of of the risk/benefits inherent in this decision they will be given the opportunity to voice understanding. Impression: 1. Acute abdominal pain 2. Elevated liver enzymes 3. Dehydration Disposition: Discharge home Jarrett Cazares DO This note was generated with MySQUAR dictation software. It may contain incorrect words, spelling, and punctuation that were not noted in review of the chart prior to signing. Lab Data Labs: Laboratory Results - last 24 hr 02/05/24 02/05/24 13:35 14:30 WBC 10.3 RBC 4.95 Hgb 15.9 H Hct 46.8 MCV 94.5 MCH 32.1 H MCHC 34.0 RDW Std Deviation 40.8 RDW Coeff of [place]ila 11.8 Plt Count 274 MPV 11.6 Immature Gran % (Auto) 0.400 Neut % (Auto) 73.0 H Lymph % (Auto) 16.6 L [place] % (Auto) 8.6 Eos % (Auto) 0.7 Baso % (Auto) 0.7 Absolute Neuts (auto) 7.6 Absolute Lymphs (auto) 1.71 Nucleated RBC % 0 Sodium 137 Potassium 4.3 Chloride 105 Carbon Dioxide 28.0 Anion Gap 4 L BUN 13 Creatinine 1.05 H Estim Creat Clear Calc 88.86 Est GFR (MDRD) Af Amer 79 Est GFR (MDRD) Non-Af 65 BUN/Creatinine Ratio 12.4 Glucose 85 Calcium 9.8 Total Bilirubin 0.40 AST 42 H ALT 81 H Alkaline Phosphatase 135 H Total Protein 7.1 Albumin 3.2 Globulin 3.9 Albumin/Globulin Ratio 0.8 L Lipase 23 Urine Color Yellow Urine Clarity Clear Urine pH 6.5 Ur Specific [place] 1.005 Urine Protein Negative Urine Glucose (UA) Normal Urine Ketones Negative Urine Occult Blood 250 H Urine Nitrite Negative Urine Bilirubin Negative Urine Urobilinogen Normal Ur Leukocyte Esterase 500 H Urine RBC 0 SEEN Urine WBC 0-5 SEEN Ur Squamous Epith Cells 0 SEEN Urine Bacteria 0 SEEN Urine Mucus 0 SEEN Radiography Diagnostic Testing: Clinical Impression(s) from Imaging Studies Abdomen/Pelvis CT 02/05/24 16:00 IMPRESSION: Mild enlargement of the uterus which may be due to recent state. No other acute abnormalities are identified. Electronically Signed: Mark Dye MD at 16:53 EDT , Discharge Plan Triage Chief Complaint: Abd Pain ED Provider: Jarrett Cazares Dx/Rx/DC Orders Clinical Impression: Abdominal pain Instructions: ED Abdominal Pain Unkn Cause Fem Prescriptions: No Action sertraline [Zoloft] 50 mg tablet 50 mg PO DAILY Hair,Skin and Nails Tablet 1 tab PO DAILY pantoprazole [Protonix] 40 mg tablet,delayed release (DR/EC) 40 mg PO DAILY Qty: 30 6RF (DME) Breast Pump See Rx Instructions .Route .MEDSUPPLY Qty: 1 0RF Rx Instructions: As directed Primary Care Provider: Jesse Piña Referrals: Jesse Piña MD [Primary Care Provider] - Activity Restrictions/Additional Instructions: Thank you for trusting us with your care today! Please take Tylenol (2 pills, 650 mg), ibuprofen (2 pills, 400 mg) every 6 hours as needed for pain and fever control. Please return to the emergency department if your symptoms change or worsen. Please follow with your primary care physician for further outpatient evaluation and management. Print Language: Turkmen Disposition Disposition: Home, Self Care
[2024-02-05 14:38] LABS: Bacteria 0 SEEN /hpf (None Seen); Mucous, Urine 0 SEEN /hpf (<or=2+); Red Blood Cells-Urine 0 SEEN /hpf (0-5); Squamous Epithelial Cells - UA 0 SEEN /hpf (5-10)
[2024-02-05 14:39] LABS: Color, Urine Yellow (Yellow); Glucose, Dipstick Normal (Normal); Ketone-Dipstick Negative (Negative); Leukocyte Esterase-Dipstick 500 /ul (Negative); Nitrite-Dipstick Negative (Negative); Occult Blood-Urine 250 /ul (Negative); Protein-Dipstick Negative (Negative); Specific Gravity, Urine 1.005 (1.002-1.030); Urine Bilirubin Dipstick Negative (Negative); Urine Clarity Clear (Clear); Urine Urobilinogen Normal (Normal); Urine pH 6.5 (5.0 - 8.0)
[2024-02-05 14:46] LABS: White Blood Cells 0-5 SEEN /hpf (0-5)
[2024-02-05 15:07] VITALS: BP 124/83; PULSE 76; RESP 16; O2SAT 98
[2024-02-05 15:23] LABS: Lipase 23 U/L (13-75)
--- NOTE | 2024-02-05 16:00 | CT_ITS ---
EXAM: CT ABDOMEN AND PELVIS WITH INTRAVENOUS CONTRAST CLINICAL INDICATION: abdominal pain TECHNIQUE: Helically acquired images were obtained of the abdomen and pelvis with intravenous contrast. This CT exam was performed using one or more of the following dose reduction techniques: automated exposure control, adjustment of the mA and/or kV according to patient size, and/or use of iterative reconstruction technique. CONTRAST: IV 100mL Isovue-370 COMPARISON: No relevant prior studies available. FINDINGS: LOWER THORAX: Unremarkable. Lung bases are clear. No cardiomegaly. No significant pericardial effusion. ABDOMEN: LIVER: Liver is decreased in size compatible fatty infiltration. GALLBLADDER AND BILE DUCTS: Unremarkable. No calcified gallstones. No gallbladder distention or wall edema. No intra- or extrahepatic biliary ductal dilation. PANCREAS: Unremarkable. No focal cystic or solid mass. SPLEEN: Unremarkable. Normal size without focal cystic or solid mass. ADRENALS: Unremarkable. No nodules. KIDNEYS AND URETERS: Unremarkable. Normal renal size and position. No hydronephrosis. STOMACH AND BOWEL: Unremarkable. No stomach or bowel distention. No focal inflammatory change. PELVIS: APPENDIX: No evidence of acute appendicitis. BLADDER: Unremarkable. REPRODUCTIVE: The uterus is mildly enlarged in size measuring 16.4 x 6.7 x 10.3 cm. This may be due to recent state. ABDOMEN and PELVIS: INTRAPERITONEAL SPACE: Unremarkable. No ascites or other fluid collection. No free air. BONES/JOINTS: Unremarkable. No suspicious lytic or blastic abnormality. SOFT TISSUES: Unremarkable. No discrete abdominal or pelvic wall hernia. VASCULATURE: Unremarkable. Abdominal aorta is non-dilated. LYMPH NODES: Unremarkable. No enlarged lymph nodes. CT/Abdomen/Pelvis W IV Cont ONLY IMPRESSION: Mild enlargement of the uterus which may be due to recent state. No other acute abnormalities are identified. Electronically Signed: Mark Dye MD at 16:53 EDT ,
[2024-02-05 17:21] VITALS: BP 139/84; PULSE 67; RESP 16; TEMP 36.7; O2SAT 98
== END 2024-02-05 17:22 | disposition home or self-care (01) ==
PROVIDERS: Emergency Provider Emergency Medicine; PCP Family Medicine; Visit Provider Emergency Medicine
DX: R10.31 Right lower quadrant pain (principal); E86.0 Dehydration; R74.8 Abnormal levels of other serum enzymes; F41.9 Anxiety disorder, unspecified; F32.A Depression, unspecified; R12 Heartburn; Z79.899 Other long term (current) drug therapy
CPT/HCPCS: 74177; 80053; 81001; 83690; 85025; 87086; 99283; Q9967; A4216

== ENCOUNTER 2024-05-19 08:45 | Emergency (ER) | payer OTHER, SELFPAY ==
[2024-05-19 08:46] VITALS: BP 95/73; PULSE 72; RESP 16; TEMP 35.6; O2SAT 97; BMI 30.9
--- NOTE | 2024-05-19 10:32 | EX.ED.DYSGE1 ---
HPI History of Present Illness Chief Complaint: Abscess Informant: patient Narrative Narrative: 28-year-old female presenting to the emergency room with a chief complaint of left breast abscess. Patient states that she is breast-feeding patient at [facility]. Patient states that she was recently started on Keflex for mastitis and on the 08 May was changed to dicloxacillin. She noted improvement about 6 days ago but over the past couple days has had increasing erythema and swelling particularly of the lower medial quadrant. Patient continues to have good milk supply. She denies any fever chills sweats. PFSH PFSH Medical History Family history of hearing loss at age younger than 7 years Vaginal delivery Active labor at term Acute sinusitis, unspecified Supervision of normal first Depression Anxiety Heartburn Non-smoker Home Medications ?Medication ?Instructions ?Recorded ?Last Taken ?Type multivitamin with minerals 1 tab PO DAILY 06/18/21 01/26/24 History (Hair,Skin and Nails tablet) Breast Pump #1 ea 12/27/23 Unknown Rx sertraline 50 mg tablet (Zoloft) 50 mg PO DAILY anxiety, depression 03/13/24 Unknown Rx #90 tabs dicloxacillin 500 mg capsule 500 mg PO Q6H #40 caps 05/08/24 Unknown Rx dicloxacillin 500 mg capsule 500 mg PO Q6H #28 caps 05/19/24 Unknown Rx Allergy/AdvReac Type Severity Reaction Status Date / Time sulfamethoxazole (From AdvReac Rash Verified 05/19/24 08:46 Bactrim) trimethoprim (From Bactrim) AdvReac Rash Verified 05/19/24 08:46 Family History Mother Thyroid disorder hypo Heart disease Father CVA (cerebral vascular accident) Hypertension Sister Thyroid disorder Depression Surgical History Hx of wisdom tooth extraction Hx of tonsillectomy Social History adopted: No household members: spouse housing: house number of children: 1 current occupational status: employed 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 current occupational exposures/hazards: Yes pets and animals: Yes history of recent travel: No sexually active: Yes Smoking Status: Never smoker alcohol intake: current details: not while substance use type: does not use jose/mormon: Gnosticism seatbelt use: always do you feel safe at home: Yes additional social history: Spouse - Adilson - spouses occupation / driver's education instructor ROS ROS ED Constitutional Constitutional ED: Denies chills, fever(s) or weight loss Eyes Eyes: Denies change in vision or diplopia ENT ENT ED: Denies ear pain, rhinorrhea or sore throat Cardiovascular Cardiovascular: Denies chest pain, orthopnea, palpitations or racing heartbeat Respiratory/Chest Respiratory/Chest: Denies cough, dyspnea or orthopnea Gastrointestinal Gastrointestinal: Denies abdominal pain, diarrhea, nausea or vomiting Genitourinary Genitourinary ED: Denies dysuria, hematuria or urinary frequency Musculoskeletal Musculoskeletal: Denies arthralgias or myalgias Integumentary Reports abscess and rash Neurologic Neurologic: Denies headache(s) or weakness Psychiatric Psychiatric: Denies anxiety, depression, suicidal ideation or suicidal thoughts Endocrine Endocrinology: Denies polydipsia, polyphagia or polyuria Allergic/Immunologic Allergic/Immunologic ED: Denies mouth swelling, tongue swelling or urticaria EXAM Physical Exam Const Vital Signs: 05/19/24 08:46 Temperature 96.1 F L Temperature Source Temporal Pulse Rate 72 Respiratory Rate 16 Blood Pressure 95/73 Blood Pressure Mean 80 Pulse Ox 97 Oxygen Delivery Method Room Air Positive well nourished and well developed General Appearance ED: well developed HEENT Reports normocephalic, head/scalp atraumatic and moist mucous membranes Eyes PERRL and EOMs intact bilaterally Neck no lymphadenopathy, supple and no JVD Chest Wall Chest Narrative: Left breast demonstrates significant erythema in the lower medial and lateral quadrant. There is a quarter sized area of skin sloughing noted approximately 2 cm medial and inferior to the nipple. There is no fluctuance. Resp normal respiratory effort and clear to auscultation bilaterally Cardio regular rate, regular rhythm and no murmurs GI normal to inspection, nondistended, normoactive bowel sounds and non-tender Palpation: soft Back/Spine no CVA tenderness and normal ROM Extremity normal to inspection General Extremety ED: Negative for edema General Extremity: Negative for edema Neuro oriented x3 and CN's II-XII intact bilaterally Sensorium / Orientation: alert Motor Exam: strength 5/5 throughout Psych mental status grossly normal Mood & Affect: Negative for depressed or tearful Skin no wounds MDM MDM MDM Narrative Medical decision making narrative: Differential diagnosis includes but not limited to breast abscess cellulitis/mastitis malignancy I performed a bedside ultrasound which does not demonstrate an obvious fluid collection. There is substantial flow of milk through the duct tissue in the area of concern. I spoke with Dr. Ra Russell from obstetrics who asked that I speak with general surgery. I spoke with Dr. Castro. Plan is to obtain blood work and a CT scan. White count returns at 10.7 with normal differential. BMP is negative. CT of the chest was obtained with IV contrast. This demonstrates breast abscess. I spoke again with Dr. Castro will be in to evaluate the patient. Patient was updated Dr. Castro performed needle aspiration received moved approximately 47 cc of fluid. This will be sent for culture. He is requesting the patient have additional dicloxacillin ordered. He will follow-up with the patient in 1 week. History & Record Review Discussion w/independent historian: Patient Lab Data Attestation: I reviewed the patient's lab results. Labs: Laboratory Results - last 24 hr 05/19/24 10:50 WBC 10.7 RBC 4.67 Hgb 14.0 Hct 42.6 MCV 91.2 MCH 30.0 MCHC 32.9 RDW Std Deviation 38.0 RDW Coeff of [place]aimla 11.6 Plt Count 313 MPV 11.0 Immature Gran % (Auto) 0.400 Neut % (Auto) 68.3 Lymph % (Auto) 19.1 [place] % (Auto) 8.5 Eos % (Auto) 3.0 Baso % (Auto) 0.7 Absolute Neuts (auto) 7.3 Absolute Lymphs (auto) 2.05 Nucleated RBC % 0 Sodium 139 Potassium 4.1 Chloride 107 Carbon Dioxide 29.0 Anion Gap 3 L BUN 13 Creatinine 0.87 Estim Creat Clear Calc 105.11 Est GFR (MDRD) Af Amer 97 Est GFR (MDRD) Non-Af 81 BUN/Creatinine Ratio 14.9 Glucose 94 Calcium 9.8 Radiography Diagnostic Testing: Clinical Impression(s) from Imaging Studies Chest CT 05/19/24 10:38 IMPRESSION: 1. There is a lobulated, likely loculated fluid collection in the left breast extending from the periareolar region throughout the breast parenchyma mostly in the lower medial quadrant measuring approximately 5.5 x 6.6 x 4.9 cm. This is likely a breast abscess given the history of mastitis. Recommend surgical consultation. 2. Asymmetric left breast skin thickening and extraglandular stranding suggesting mastitis/cellulitis. Electronically Signed: Igor Zarate DO at 11:54 EDT , Management Discussion w/another healthcare provider: Sales Consulting Director (Dr Marx (OB) Dr. Castro (GS)) Discharge Plan Triage Chief Complaint: Abscess ED Provider: Orville Holloway Dx/Rx/DC Orders Clinical Impression: Mastitis, Abscess of left breast Prescriptions: New dicloxacillin 500 mg capsule 500 mg PO Q6H Qty: 28 0RF No Action sertraline [Zoloft] 50 mg tablet 50 mg PO DAILY Qty: 90 4RF dicloxacillin 500 mg capsule 500 mg PO Q6H Qty: 40 0RF Rx Instructions: Take 1 tablet PO q 6 hours for 10 days Hair,Skin and Nails Tablet 1 tab PO DAILY (DME) Breast Pump See Rx Instructions .Route .MEDSUPPLY Qty: 1 0RF Rx Instructions: As directed Primary Care Provider: Jesse Piña Referrals: Jesse Piña MD [Primary Care Provider] - Ganesh Castro MD [Med Staff - Active Staff] - 1 Week Print Language: [place] Disposition Disposition: Home, Self Care
--- NOTE | 2024-05-19 10:38 | CT_ITS ---
EXAM: CT CHEST WITH INTRAVENOUS CONTRAST CLINICAL INDICATION: left breast abscess (lactating) TECHNIQUE: Helically acquired images were obtained of the chest with intravenous contrast. This CT exam was performed using one or more of the following dose reduction techniques: automated exposure control, adjustment of the mA and/or kV according to patient size, and/or use of iterative reconstruction technique. CONTRAST: IV 100mL Isovue-370 COMPARISON: CT abdomen and pelvis, 02/05/2024. FINDINGS: LUNGS AND PLEURAL SPACES: No significant abnormality. No mass. No consolidation or edema. No pleural effusion or thickening. No pneumothorax. HEART: No significant abnormality. Heart size is normal. No pericardial effusion. MEDIASTINUM: No significant abnormality. No mediastinal or hilar adenopathy. Esophagus is unremarkable. No hiatal hernia. THYROID: No significant abnormality. No thyroid lesions. BONES/JOINTS: No significant abnormality. No suspicious lytic or blastic abnormality. SOFT TISSUES: There is a lobulated, likely loculated fluid collection in the left breast extending from the periareolar region throughout the breast parenchyma mostly in the lower medial quadrant measuring approximately 5.5 x 6.6 x 4.9 cm. Asymmetric left breast skin thickening and extraglandular stranding suggesting mastitis/cellulitis. VASCULATURE: No significant abnormality. Thoracic aorta is non-dilated. No thoracic aortic dissection. No obvious central pulmonary embolism although this study was not performed with the pulmonary embolism protocol. CT/Chest WITH Contrast IMPRESSION: 1. There is a lobulated, likely loculated fluid collection in the left breast extending from the periareolar region throughout the breast parenchyma mostly in the lower medial quadrant measuring approximately 5.5 x 6.6 x 4.9 cm. This is likely a breast abscess given the history of mastitis. Recommend surgical consultation. 2. Asymmetric left breast skin thickening and extraglandular stranding suggesting mastitis/cellulitis. Electronically Signed: Igor Zarate DO at 11:54 EDT ,
[2024-05-19 11:02] LABS: Absolute Lymphocyte Count 2.05 X10^3/uL (0.83-4.51); Absolute Neutrophil Count 7.3 X10^3/uL (2.0-7.7); Basophil# 0.07 X10^3/uL; Basophil% 0.7 % (0-1); Eosinophil# 0.32 X10^3/uL; Hematocrit 42.6 % (37-47); Lymphocyte # 2.05 X10^3/ul (0.83-4.51); Lymphocyte % 19.1 % (19-41); Mean Corp Hgb Conc 32.9 g/dL (32-36); Mean Corpuscular Volume 91.2 fL (81-99); Monocyte# 0.91 X10^3/uL; Monocyte% 8.5 % (0-10); NRBC Flagged by Analyzer 0 % (0-5); Neutrophil # 7.32 X10^3/uL (2.7-7.7); Neutrophil % 68.3 % (47-70); Platelet Count 313 K/mm3 (150-450); RBC Distribution Width CV 11.6 % (11.6-14.6); Red Blood Count 4.67 M/mm3 (4.2-5.4); White Blood Count 10.7 K/mm3 (4.4-11.0)
[2024-05-19 11:13] LABS: Anion Gap 3 (5-15); BUN 13 mg/dL (7-18); BUN/Creat Ratio 14.9 RATIO (10-20); Calcium,Total 9.8 mg/dL (8.5-10.1); Chloride 107 mmol/L (98-107); Creatinine, Serum 0.87 mg/dL (0.55-1.02); EST Glomerular Filtration Rate 81 mL/min (>60); Est Glom Filt Rate - Afr Amer 97 mL/min (>60); Estimated Creatinine Clearance 105.11 ml/min; Glucose 94 mg/dL (74-106); Potassium 4.1 mmol/L (3.5-5.1); Sodium Level 139 mmol/L (136-145)
--- NOTE | 2024-05-19 13:19 | PRO.PCM_ITS ---
Procedure Report Date of Procedure: 05/19/24 Procedure: Ultrasound-guided aspiration of left breast abscess Procedure description: After appropriate positioning was made to place the patient in the supine position with her left arm placed to the side the left breast was sterilely prepped. Signed consents had been obtained prior to positioning and were verbally confirmed. Then the medial aspect of the patient's subcutaneous fluid collection was identified via ultrasound. Local anesthetic (1% plain lidocaine) was instilled and infiltrated to the skin and subcutaneous tissues in a tract down to this collection. Once it was appropriately anesthetized to sharp stimuli, a stab incision was made in the skin and I attempted to advance an 18- gauge needle with a catheter threaded over it into the fluid collection under ultrasound guidance. However, as I back aspirated on a syringe there was no return and this same result was met despite slight adjustments in the needle tip position. Thus this longer finder needle and catheter were withdrawn and exchanged for a plain, standard length 18-gauge needle. This time I was able to direct the needle tip into the fluid collection and upon back aspirating was able to obtain return of yellow?brown milky fluid. I continued to aspirate this fluid collection and exchanged the syringe for a 60 mL volume syringe. Slight position changes were made with ultrasound guidance to try to ensure all visible subcutaneous fluid was aspirated. A total aspirate volume of 47 mL was achieved with this technique. Reexamination with ultrasound showed significant improvement in the fluid, however, it was difficult to differentiate at this depth definitively from the surrounding inflammatory change. The procedure was then terminated and the access site was cleaned. A few Steri-Strips were placed across this opening to try to encourage healing but prevented from being completely occlusive. A gauze was folded in force and taped over this area for ongoing absorption of any drainage. A syringe of the aspirate was submitted for culture. EBL: 2 mL Complications: None Procedures Integumentary 10xxx: [id number] Img gid flu precious drg sft tis
--- NOTE | 2024-05-19 13:19 | EX.PCM.CON.S ---
Assessment & Plan Assessment/Plan (1) Abscess of left breast: PLAN: Patient is a 28-year-old female with month-long history of mastitis that appears to have converted to a left breast abscess as well. CT imaging was obtained of the chest showing a 6.6 x 5 cm loculated fluid collection. Given that patient is still lactating I recommended ultrasound-guided aspiration of this abscess cavity and ongoing antibiotic therapy. Patient was receptive of this recommendation and the procedure was undertaken in uncomplicated fashion during our encounter. Full details are given in a separate procedure note. Patient is asked to continue dicloxacillin for another week and follow-up with me in the outpatient setting and that time to ensure resolution. She is also instructed to reach out sooner if she develops any fevers, chills, or worsening of her symptoms. In the interim we will look to follow-up cultures from today's procedure. Ganesh Castro MD General Surgery Endocrine Surgery Pager: [facility] [address] [place] [address], [facility], [address] [place] [address] Office: [phone] HPI Consult Data Date of Consult: 05/19/24 HPI Narrative Reason for Consultation: Left breast abscess HPI Narrative: ALENA RACHEL, is a 28 F who presents to [facility] emergency department at the direction of OB triage due to complaints of progressive left breast pain and swelling. Mrs. Rachel is fairly recent from delivery of her first child on January 27, 2024 and has been breast-feeding since that time. She shares that she is both using standard breast-feeding as well as pumping. She reports that she was first evaluated in outpatient obstetrics for mastitis at the beginning of April. She was started on Keflex x 7 days, but states there was little improvement if any with this antibiotic therapy. Thereafter she was reevaluated and initiated on dicloxacillin. She notes a significant improvement with this antibiotic, however, more swelling and tenderness ensued. With this recurrence of symptoms she sought additional evaluation and was thus directed to the emergency department. Dr. Ra Russell of obstetrics and gynecology asked for surgery to be notified. After a conversation with emergency medicine we agreed to obtain labs and imaging. Labs were all within normal limits, however, CT imaging showed evidence of an approximately 7 x 5 cm loculated fluid collection in the inferior/medial aspect of the left breast. Mrs. Rachel denies any history of staph infections or abscesses, generally. 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 [facility] Medical History Family history of hearing loss at age younger than 7 years Vaginal delivery Active labor at term Acute sinusitis, unspecified Supervision of normal first Depression Anxiety Heartburn Non-smoker Home Medications ?Medication ?Instructions ?Recorded ?Last Taken ?Type multivitamin with minerals 1 tab PO DAILY 06/18/21 01/26/24 History (Hair,Skin and Nails tablet) Breast Pump #1 ea 12/27/23 Unknown Rx sertraline 50 mg tablet (Zoloft) 50 mg PO DAILY anxiety, depression 03/13/24 Unknown Rx #90 tabs dicloxacillin 500 mg capsule 500 mg PO Q6H #40 caps 05/08/24 Unknown Rx dicloxacillin 500 mg capsule 500 mg PO Q6H #28 caps 05/19/24 Unknown Rx Allergy/AdvReac Type Severity Reaction Status Date / Time sulfamethoxazole (From AdvReac Rash Verified 05/19/24 08:46 Bactrim) trimethoprim (From Bactrim) AdvReac Rash Verified 05/19/24 08:46 Family History Mother Thyroid disorder hypo Heart disease Father CVA (cerebral vascular accident) Hypertension Sister Thyroid disorder Depression Surgical History Hx of wisdom tooth extraction Hx of tonsillectomy Social History adopted: No household members: spouse housing: house number of children: 1 current occupational status: employed current occupation: [employer] 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 and 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 analyst current occupational exposures/hazards: Yes pets and animals: Yes history of recent travel: No sexually active: Yes Smoking Status: Never smoker alcohol intake: current details: not while substance use type: does not use jose/yarsani: Mu-Ism seatbelt use: always do you feel safe at home: Yes additional social history: Spouse - Adilson - spouses occupation / computer systems technology instructor [employer] Constitutional Constitutional: Denies fever(s) Integumentary Integumentary: Reports other Details: New sloughing of her skin as of today Physical Exam Const alert and healthy appearing Constitutional Narrative: Anxious Chest Chest Narrative: Moderately severe cellulitic changes of the left breast in the inferior medial quadrant. There is also some superficial sloughing of the epidermal layer and an area approximately 2 cm round. There is exquisite tenderness and lamine ability with palpation. Ultrasound exam is performed of this breast and identify a hypoechoic region consistent with a pocket of subcutaneous fluid at approximately 3 cm depth. Lab / Micro Data 05/19/24 10:50 05/19/24 10:50 Labs: Laboratory Results - last 24 hr 05/19/24 10:50: WBC 10.7, RBC 4.67, Hgb 14.0, Hct 42.6, MCV 91.2, MCH 30.0, MCHC 32.9, RDW Std Deviation 38.0, RDW Coeff of Yamila 11.6, Plt Count 313, MPV 11.0, Immature Gran % (Auto) 0.400, Neut % (Auto) 68.3, Lymph % (Auto) 19.1, Arthur % (Auto) 8.5, Eos % (Auto) 3.0, Baso % (Auto) 0.7, Absolute Neuts (auto) 7.3, Absolute Lymphs (auto) 2.05, Nucleated RBC % 0, Sodium 139, Potassium 4.1, Chloride 107, Carbon Dioxide 29.0, Anion Gap 3 L, BUN 13, Creatinine 0.87, Estim Creat Clear Calc 105.11, Est GFR (MDRD) Af Amer 97, Est GFR (MDRD) Non-Af 81, BUN/Creatinine Ratio 14.9, Glucose 94, Calcium 9.8 Imaging Radiology Impression Chest CT 05/19/24 10:38 IMPRESSION: 1. There is a lobulated, likely loculated fluid collection in the left breast extending from the periareolar region throughout the breast parenchyma mostly in the lower medial quadrant measuring approximately 5.5 x 6.6 x 4.9 cm. This is likely a breast abscess given the history of mastitis. Recommend surgical consultation. 2. Asymmetric left breast skin thickening and extraglandular stranding suggesting mastitis/cellulitis. Electronically Signed: Igor Zarate DO at 11:54 EDT , Charges/Coding Visit Charges Office Visits / Consults: [id number] ED Visit; Moderate Severity
[2024-05-19 13:36] VITALS: BP 134/79; PULSE 72; RESP 15; TEMP 36.4; O2SAT 100
== END 2024-05-19 13:37 | disposition home or self-care (01) ==
PROVIDERS: Emergency Provider Emergency Medicine; PCP Family Medicine; Visit Provider Emergency Medicine
DX: O91.13 Abscess of breast associated with lactation (principal); O99.345 Other mental disorders complicating the puerperium; F41.9 Anxiety disorder, unspecified; F32.A Depression, unspecified; Z79.899 Other long term (current) drug therapy
CPT/HCPCS: 10160; 71260; 80048; 85025; 87070; 87077; 87186; 87205; 99283; Q9967; A4216

== ENCOUNTER → 2025-06-05 | Outpatient (CLI) | payer BC, SELFPAY ==
[2025-06-05 10:17] LABS: Hematocrit 42.3 % (37-47); Hemoglobin 15.0 g/dL (12.0-15.0); Immature Granulocytes Count 0.030 X10^3/uL (0.0-0.0); Mean Corp Hgb Conc 35.5 g/dL (32-36); Mean Corpuscular Volume 89.4 fL (81-99); Mean Platelet Vol. 12.1 fl (6.2-12.0); NRBC Flagged by Analyzer 0 % (0-5); Platelet Count 213 K/mm3 (150-450); RBC Distribution Width CV 11.6 % (11.6-14.6); RBC Distribution Width SD 37.5 fl (35.1-43.9); Red Blood Count 4.73 M/mm3 (4.2-5.4); White Blood Count 7.4 K/mm3 (4.4-11.0)
[2025-06-05 10:57] LABS: HIV Nonreactive (Nonreactive); Hepatitis B Surface Antigen Nonreactive (Nonreactive); Hepatitis C Antibody Nonreactive (Nonreactive); Syphilis Antibodies Nonreactive (Nonreactive)
[2025-06-06 21:07] LABS: Chlamydia By Nucleic Acid AMP Negative (Negative); Gonococcus By Nucleic Acid AMP Negative (Negative)
== END | disposition home or self-care (01) ==
PROVIDERS: PCP Family Medicine; Visit Provider Advanced Practice Midwife
DX: O99.210 Obesity complicating pregnancy, unspecified trimester (principal); Z3A.00 Weeks of gestation of pregnancy not specified
CPT/HCPCS: 36415; 83036; 85025; 86703; 86762; 86780; 86803; 86850; 86900; 86901; 87086; 87340; 87491; 87591

== ENCOUNTER → 2025-07-31 | Outpatient (CLI) | payer BC, SELFPAY ==
--- NOTE | 2025-07-31 12:24 | US_ITS ---
PROCEDURE: OB ANATOMY W/ TRANSVAGINAL 07/31/2025 REASON FOR EXAM: ANATOMY US TECHNIQUE: Procedure Code: [id number] Modality: US Procedure: OB ANATOMY W/ TRANSVAGINAL COMPARISON: None FINDINGS Number: 1 Position: Breech Placental Position: Posterior and not low-lying Placental Abnormalities: No evidence of previa. DIMENSIONS: Biparietal Diameter: 4.9 cm: 20 weeks and 6 days: 36 percentile/ Head Circumference: 18.9 cm: 21 weeks and 2 days: 44 percentile/ Abdominal Circumference: 16.3 cm: 21 weeks and 3 days: 52nd percentile/ Femur Length: 3.4 cm: 20 weeks and 6 days: 30 percentile/ ESTIMATED WEIGHT: 401 g plus/-60 g ESTIMATED WEIGHT PERCENTILE (24+ weeks): 43rd ESTIMATED GESTATIONAL AGE: Baseline: 21 weeks and 1 day By Ultrasound: 21 weeks and 0 days ESTIMATED DATE OF DELIVERY: Baseline: December 10, 2025 By Ultrasound: December 11, 2025 BIOPHYSICAL ASSESSMENT: Amniotic Fluid Volume: 4.9 cm Amniotic Fluid Index: Within normal limits. Cardiac Motion: 139 beats per minute (average) Trunk and Limb Motion: Present. MATERNAL ANATOMY: Adnexa: Neither maternal ovary is successfully identified. Cervical Length (if measured): 3.7 cm ANATOMY: Spine: Unremarkable Cranium: Unremarkable Cerebellum: Unremarkable Cisterna Magna: Unremarkable Cavum Septum Pellucidi: Unremarkable Lateral Ventricles: Unremarkable Choroid Plexus: Unremarkable Midline Falx: Unremarkable Nuchal Fold: Unremarkable Upper Lip: Unremarkable Heart: Unremarkable Stomach: Unremarkable Kidneys: Unremarkable Bladder: Unremarkable Umbilical Cord: Unremarkable Extremities: Unremarkable US/OB Anatomy w/ Transvaginal IMPRESSION: Single live intrauterine gestation with a mean gestational age of 21 weeks. Reading Location: [id number]
== END | disposition home or self-care (01) ==
LOC: OPUS 12:22
PROVIDERS: PCP Family Medicine; Referring Provider Advanced Practice Midwife; Visit Provider Advanced Practice Midwife
DX: Z34.92 Encounter for supervision of normal pregnancy, unspecified, second trimester (principal); Z3A.21 21 weeks gestation of pregnancy
CPT/HCPCS: 76805; 76817

== ENCOUNTER → 2025-09-04 | Outpatient (CLI) | payer BC, SELFPAY ==
[2025-09-04 12:33] LABS: Hematocrit 41.0 % (37-47); Hemoglobin 13.7 g/dL (12.0-15.0); Immature Granulocytes Count 0.040 X10^3/uL (0.0-0.0); Mean Corp Hgb Conc 33.4 g/dL (32-36); Mean Corpuscular Volume 96.0 fL (81-99); Mean Platelet Vol. 12.1 fl (6.2-12.0); NRBC Flagged by Analyzer 0 % (0-5); Platelet Count 188 K/mm3 (150-450); RBC Distribution Width CV 13.1 % (11.6-14.6); RBC Distribution Width SD 45.2 fl (35.1-43.9); Red Blood Count 4.27 M/mm3 (4.2-5.4); White Blood Count 8.1 K/mm3 (4.4-11.0)
[2025-09-04 13:48] LABS: Glucose Challenge Gest 1H 50g 86 mg/dL (70-140); HIV Nonreactive (Nonreactive); Syphilis Antibodies Nonreactive (Nonreactive)
== END | disposition home or self-care (01) ==
LOC: BWCLAB 08:49
PROVIDERS: Nurse Practitioner Women's Health; PCP Family Medicine; Visit Provider Obstetrics & Gynecology
DX: Z34.90 Encounter for supervision of normal pregnancy, unspecified, unspecified trimester (principal); Z13.1 Encounter for screening for diabetes mellitus
CPT/HCPCS: 36415; 82950; 85025; 86703; 86780